=== PATIENT | female | born 1985 ===

== ENCOUNTER 2022-12-06 13:54 | Outpatient (AMB) | payer OTHER, SELFPAY ==
[2022-12-06 13:55] VITALS: BP 112/68; PULSE 61; O2SAT 100; BMI 29.1
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
== END 2022-12-06 14:29 | disposition home or self-care (01) ==
PROVIDERS: Visit Provider Nurse Practitioner Family
DX: Z00.00 Encounter for general adult medical examination without abnormal findings (principal); G43.909 Migraine, unspecified, not intractable, without status migrainosus; F41.1 Generalized anxiety disorder; F33.1 Major depressive disorder, recurrent, moderate
CPT/HCPCS: 99395

== ENCOUNTER 2023-11-05 17:02 | Outpatient (AMB) | payer OTHER, SELFPAY ==
[2023-11-05 17:24] VITALS: BP 114/70; PULSE 70; O2SAT 99; BMI 28.9
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
== END 2023-11-05 17:47 | disposition home or self-care (01) ==
PROVIDERS: PCP Internal Medicine; Visit Provider Internal Medicine
DX: G43.909 Migraine, unspecified, not intractable, without status migrainosus (principal); F33.1 Major depressive disorder, recurrent, moderate; F41.1 Generalized anxiety disorder
CPT/HCPCS: 99213; G2211

== ENCOUNTER 2023-12-11 10:46 | Emergency (ER) | payer OTHER, SELFPAY ==
--- NOTE | ~2023-12-11 | XR_ITS ---
EXAMINATION: XR CHEST CLINICAL INFORMATION: Central chest pain and dyspnea COMPARISON: 12/25/2008 TECHNIQUE: 2 views of the chest were obtained. FINDINGS: No significant abnormality is noted involving the heart, lungs, mediastinum, bony thorax or soft tissues. XR/XR chest 2V IMPRESSION: Unremarkable examination.
--- NOTE | 2023-12-11 10:50 | ECG_ITS ---
Test Reason : cp Blood Pressure : / mmHG Vent. Rate : 075 BPM Atrial Rate : 075 BPM P-R Int : 118 ms QRS Dur : 092 ms QT Int : 370 ms P-R-T Axes : 030 022 018 degrees QTc Int : 413 ms Normal sinus rhythm Normal ECG No previous ECGs available Referred By: Generic ED Physician Electronically Signed By:EVE JUNIOR MD
[2023-12-11 11:11] VITALS: BP 120/94; PULSE 74; RESP 18; TEMP 37; O2SAT 100; BMI 28.6
--- NOTE | 2023-12-11 11:13 | ED.CHESTPAIN ---
HPI - Chest Pain General Chief Complaint: Chest Pain Stated Complaint: Chest pain 1 week Time Seen by Provider: 12/11/23 13:08 Source: patient and RN notes reviewed Mode of arrival: ambulatory Limitations: no limitations History of Present Illness ED Provider: Bibi Iniguez PA-C HPI narrative: This is a 37-year-old female, with a history of anxiety, and migraines, who presents emergency department with complaints of constant chest pain x6 days. Patient states that she initially felt these symptoms while she was typing at the computer on . She states that her symptoms have waxed and waned in severity. She states that initially her pain was midsternal, now is diffusely throughout her chest. She states that the pain worsens when she takes deep breaths. She denies any sharp pain. She denies any recent fevers, chills, sore throat, congestion, cough, palpitations, shortness of breath, abdominal pain, nausea, vomiting or diarrhea. Denies history of similar symptoms. Patient denies control use. Denies any recent travel, surgery, or hospitalizations. Denies history of blood clots or cancer history. No other complaints or concerns at this time. MD complaint: chest pain Related Data Previous Rx's ?Medication ?Instructions ?Recorded cetirizine 10 mg tablet (All Day 10 mg PO DAILY PRN allergy 11/05/23 Allergy (cetirizine)) symptoms 90 days #90 tabs sertraline 25 mg tablet 25 mg PO DAILY 90 days #90 tabs 11/05/23 sumatriptan succinate 25 mg tablet 25 mg PO Q2-4H PRN migraine 11/05/23 headache 30 days #9 tabs Allergies Allergy/AdvReac Type Severity Reaction Status Date / Time bee pollen [Bee Stings] Allergy Severe ANAPHYLAXIS Verified 12/11/23 11:15 latex [Latex] Allergy Severe ANAPHYLAXIS Verified 12/11/23 11:15 mushroom Allergy Severe ANAPHYLAXIS Verified 12/11/23 11:15 apple AdvReac Intermediate itching Verified 12/11/23 11:15 Bee Stings Allergy Unknown Swelling Uncoded 11/05/23 17:36 Latex Allergy Unknown Unknown Uncoded 11/05/23 17:36 mushrooms Allergy Unknown Anaphylaxis Uncoded 11/05/23 17:36 cherries AdvReac Mild itching Uncoded 11/05/23 17:36 Review of Systems Review of Systems: Yes all other systems are reviewed and are negative Constitutional: Constitutional: Reports as per HPI [facility] Past Medical History Surgical History History of tubal ligation History of Family History Family History Mother Mental health disorder Substance use disorder Father No problems noted. Family/Other Substance use disorder Cancer Social History Social History Housing: Apartment Alcohol intake: current Alcohol intake frequency: holidays/special occasions only Alcohol type: wine Patient Tobacco Use Status: Former Tobacco user Tobacco use type: Cigarette Smoked in Last 30 Days: No e-Cigarette/Vaping Use: Never Used Second Hand Smoke Exposure: No Use of substances other than those prescribed or required for medical reasons: No Advance Directives: No Advance Directives Information Provided: Yes service: No Current occupational status: unemployed Cognitive needs: No Hearing needs: No Vision needs: Yes Physical Exam Vital Signs: Vital Signs: Last Vital Signs Temp 98.3 F 12/11/23 16:25 Pulse 72 12/11/23 16:25 Resp 16 12/11/23 16:25 BP 113/69 12/11/23 16:25 Pulse Ox 100 12/11/23 16:25 O2 Del Method Room Air 12/11/23 16:25 BMI result Body Mass Index 28.6 Const: General: cooperative, comfortable and no acute distress Orientation/consciousness: patient oriented x3 Limitations: no limitations HEENT: Head: Yes normal to inspection, Yes normocephalic and Yes atraumatic Ears: hearing grossly normal bilaterally General nose exam: Normal external nose present Face and sinus: Yes normal facial exam Mouth: Normal oral and palatal mucosa present, oropharynx normal and moist mucous membranes Throat: Yes posterior oropharynx normal Eyes: General: appearance normal, both eyes and all related structures Eyelids: Yes eyelids normal Conjunctivae: conjunctivae normal Sclerae: sclerae normal Pupils: Equal, round and reactive pupils present EOM: EOMs intact bilaterally Neck: Neck: Yes normal visual inspection, Yes full ROM and Yes no lymphadenopathy Lymphatic: no lymphadenopathy noted Chest: Chest palpation & inspection: normal inspection of the chest Resp: Effort & Inspection: normal respiratory effort and able to speak in complete sentences Auscultation: clear to auscultation bilaterally, no crackles, no rales, no rhonchi and no wheezes Cardio: Rate: regular rate Rhythm: regular rhythm Heart sounds: S1 normal heart sound present and S2 normal heart sound present GI: Inspection: Yes normal to inspection Skin: General skin exam: no rashes or lesions noted Trauma: no lacerations or abrasions Wounds: no wounds Neuro: General: patient oriented x3 and moves all extremities Cranial nerves: Yes Equal, round and reactive pupils present Extrem: Other: No lower extremity edema, no calf tenderness General: Yes normal to inspection Right upper extremity: normal to inspection Left upper extremity: normal to inspection Right lower extremity: normal to inspection Left lower extremity: normal to inspection Course Course Course Narrative: This is a Rapid Medical Examination (RME) performed by Katalina Barraza PA-C in triage. Full HPI, ROS, assessment and treatment plan per primary provider in the Main ED. 37 yo female hx of RADHA, MDD here for eval of intermittent chest pain x 6 days. pain is sharp in character. orginated substernally, now moves from left to right chest and radiates into neck. admits to assoc dyspnea. denies known sick contacts. denies recent travel/ long car rides. taking tylenol at home w/ minimal relief. denies fever, chills, cough, hemoptysis, calf pain. + rrr. lungs cta. Plan: ekg, cxr, labs Medical Decision Making Medical Decision Making [facility] Narrative: This is a 37-year-old female, with a history of anxiety, and migraines, who presents emergency department with complaints of constant chest pain x6 days. On arrival, vital signs within normal limits. She is speaking full sentences under no distress. No recent travel, surgeries or hospitalizations. She is not on control. Given pleuritic chest pain, pulmonary embolisms however likely given no risk factors. Labs, EKG, chest x-ray was obtained, no abnormalities seen on workup. Workup was overall reassuring. Given strict return precautions. Patient understands and agrees with plan. Patient stable for discharge. Differential Diagnosis Differential Diagnoses: The differential diagnosis associated with the presentation includes ACS, costochondritis, pneumonia, PE-unlikely Admission/Observation Consideration of admission/observation: Escalation of care including admission/observation considered Lab Data MDM Lab Attestation statement: I reviewed the patient's lab results. No leukocytosis, stable H&H, chemistry within normal limits 12/11/23 11:36 12/11/23 11:36 Labs: Lab Results 12/11/23 12/11/23 12/11/23 Range/Units 11:36 11:37 15:18 WBC 6.3 (4.8-10.8) X10*3/uL RBC 4.42 (4.20-5.50) X10*6/uL Hgb 13.3 (12.0-16.0) g/dl Hct 39.3 (37.0-47.0) % MCV 88.9 (80.0-98.0) fL MCH 30.1 (27.0-33.0) pg MCHC 33.8 (31.0-35.0) g/dl RDW 12.4 (11.0-16.0) % Plt Count 405 H (160-400) X10*3/uL MPV 9.6 (9.4-12.3) fL Immature Gran % (Auto) 0.3 (0.0-0.4) % Neut % (Auto) 66.5 (45-73) % Lymph % (Auto) 23.6 (20-40) % [place] % (Auto) 8.8 (2-11) % Eos % (Auto) 0.6 (0-4) % Baso % (Auto) 0.2 (0-2) % Lymph # (Auto) 1.5 (1.2-4.9) X10*3/uL [place] # (Auto) 0.6 (0.1-1.2) X10*3/uL Eos # (Auto) 0.0 (0.0-0.4) X10*3/uL Baso # (Auto) 0.0 (0.0-0.2) X10*3/uL Abs Immat Gran (auto) 0.02 (0.00-0.03) X10*3/uL Absolute Neuts (auto) 4.2 (2.0-8.3) x10*3/uL Absolute Nucleated RBC 0.000 (0.0-0.012) X10*3/uL Nucleated RBC % (auto) 0.0 (0.0-0.2) /100WBC PT 12.3 (11.1-13.3) SEC INR 1.0 (0.9-1.1) D-Dimer High Sensitivty < 150 NG/ML Sodium 140 (135-145) mmol/L Potassium 3.8 (3.3-5.1) mmol/L Chloride 102 (96-108) mmol/L Carbon Dioxide 30 H (22-29) mmol/L Anion Gap 12 (12-20) BUN 12 (9-16) mg/dL Creatinine 0.78 (0.5-1.4) mg/dL Estim Creat Clear Calc 79.6 Estimated GFR > 60 Random Glucose 93 (60-115) mg/dL Calcium 9.7 (8.4-10.2) mg/dL Magnesium 2.0 (1.6-2.6) mg/dL Total Bilirubin 1.3 H (0.0-1.0) mg/dL AST 17 (5-31) U/L ALT 15 (0-31) U/L Alkaline Phosphatase 72 (39-117) U/L Troponin I High Sens < 2.7 (<3.5-17.0) ng/L B-Natriuretic Peptide 14 (<100) pg/mL Total Protein 7.7 (6.5-8.0) g/dL Albumin 4.5 (3.5-5.0) g/dL Lipase 14 (8-78) U/L Beta HCG, Quant < 2 mIU/mL Influenza Type A (PCR) NEGATIVE (Negative) Influenza Type B (PCR) NEGATIVE (Negative) RSV RNA Qual (PCR) NEGATIVE (Negative) SARS-CoV-2 RNA (RT-PCR) NEGATIVE (Negative) Independent Interpretation I performed an independent interpretation of an: EKG Interpretation: Normal sinus rhythm at a ventricular rate of 75 beats per minute, HI interval 118, QT QTC 370/413, no ST elevation or depression Radiology Impression Discussion of test interpretation with radiology: I have reviewed the radiologist's reading. Radiologist Impression: EXAMINATION: XR CHEST CLINICAL INFORMATION: Central chest pain and dyspnea COMPARISON: 12/25/2008 TECHNIQUE: 2 views of the chest were obtained. FINDINGS: No significant abnormality is noted involving the heart, lungs, mediastinum, bony thorax or soft tissues. XR/XR chest 2V IMPRESSION: Unremarkable examination. Dictated By: Jakob Pittman MD External Record Review External record reviewed: Inpatient record, Office record, Outpatient record, Prior outpatient labs, Prior outpatient radiology, Primary care record and Outside ED record Discharge Plan Discharge Clinical Impression: Chest pain Patient Disposition: Home, Self-Care Instructions: Chest Pain (ED) Additional Instructions: You were seen in the emergency department due to chest pain. Your workup today was reassuring. You tested negative for COVID, flu, RSV. Please drink plenty of fluids get plenty of rest. Follow-up with your primary care physician regarding this visit. If any new or worsening symptoms occur including but not limited to worsening chest pain, shortness of breath, please return for re-evaluation. You may take ibuprofen and/or Tylenol as needed for pain. Prescriptions: No Action sertraline 25 mg tablet 25 mg PO DAILY 90 Days Qty: 90 0RF cetirizine [All Day Allergy (cetirizine)] 10 mg tablet 10 mg PO DAILY PRN (Reason: allergy symptoms) 90 Days Qty: 90 0RF sumatriptan succinate 25 mg tablet 25 mg PO Q2-4H PRN (Reason: migraine headache) 30 Days Qty: 9 1RF Rx Instructions: do not exceed 8 doses per 24 hrs Interventions: ED Discharge Assessment Last Done: 12/11/23 16:25 Discharge Date/Time: 12/11/23 16:15 Print Language: Urdu
[2023-12-11 11:45] LABS: MANUAL DIFF FLAG NO
[2023-12-11 11:49] LABS: Basophils Percent Auto 0.2 % (0-2); Eosinophils Percent Auto 0.6 % (0-4); Hematocrit 39.3 % (37.0-47.0); Hemoglobin 13.3 g/dl (12.0-16.0); Imm Gran Abs Auto 0.02 X10*3/uL (0.00-0.03); Imm Gran Pct Auto 0.3 % (0.0-0.4); Lymphocytes Absolute Auto 1.5 X10*3/uL (1.2-4.9); Lymphocytes Percent Auto 23.6 % (20-40); Mean Corpuscular HGB Conc 33.8 g/dl (31.0-35.0); Mean Corpuscular Hemoglobin 30.1 pg (27.0-33.0); Mean Corpuscular Volume 88.9 fL (80.0-98.0); Mean Platelet Volume 9.6 fL (9.4-12.3); Monocytes Absolute Auto 0.6 X10*3/uL (0.1-1.2); Monocytes Percent Auto 8.8 % (2-11); Neutrophils Absolute Auto 4.2 x10*3/uL (2.0-8.3); Neutrophils Percent Auto 66.5 % (45-73); Platelet Count 405 X10*3/uL (160-400); Red Blood Count 4.42 X10*6/uL (4.20-5.50); Red Cell Distribution Width 12.4 % (11.0-16.0); White Blood Count 6.3 X10*3/uL (4.8-10.8)
[2023-12-11 11:57] LABS: Prothrombin Time 12.3 SEC (11.1-13.3)
[2023-12-11 12:11] LABS: B Type Natriuretic Peptide 14 pg/mL (<100)
[2023-12-11 12:12] LABS: Alanine Aminotransferase 15 U/L (0-31); Albumin Level 4.5 g/dL (3.5-5.0); Alkaline Phosphatase 72 U/L (39-117); Anion Gap 12 (12-20); Aspartate Amino Transferase 17 U/L (5-31); Bilirubin Total 1.3 mg/dL (0.0-1.0); Blood Urea Nitrogen 12 mg/dL (9-16); Calcium 9.7 mg/dL (8.4-10.2); Carbon Dioxide 30 mmol/L (22-29); Chloride 102 mmol/L (96-108); Creatinine Clr Calc Pharmacy 79.6; Estimated Glomerular Filt Rate > 60; Glucose Random 93 mg/dL (60-115); Lipase 14 U/L (8-78); Potassium 3.8 mmol/L (3.3-5.1); Sodium 140 mmol/L (135-145); Total Protein 7.7 g/dL (6.5-8.0)
[2023-12-11 12:17] LABS: HCG Quantitative < 2 mIU/mL; Troponin-I High Sensitivity < 2.7 ng/L (<3.5-17.0)
[2023-12-11 14:00] VITALS: BP 113/69; PULSE 72; TEMP 36.8; O2SAT 100
[2023-12-11 14:10] LABS: D Dimer High Sensitivity < 150 NG/ML
[2023-12-11 15:59] LABS: Influenza A PCR NEGATIVE (Negative); Influenza B PCR NEGATIVE (Negative); Resp Syncy Virus RNA Qual PCR NEGATIVE (Negative); SARS COV2 PCR INHOUSE NEGATIVE (Negative)
[2023-12-11 16:25] VITALS: BP 113/69; PULSE 72; RESP 16; TEMP 36.8; O2SAT 100
== END 2023-12-11 16:15 | disposition home or self-care (01) ==
PROVIDERS: Physician Assistant Medical; Emergency Provider Emergency Medicine; PCP Internal Medicine
DX: R07.9 Chest pain, unspecified (principal); Z79.899 Other long term (current) drug therapy; Z03.818 Encounter for observation for suspected exposure to other biological agents ruled out
CPT/HCPCS: 0241U; 36415; 71046; 80053; 83690; 83735; 83880; 84484; 84702; 85025; 85379; 85610; 93005; 99283; 99284

== ENCOUNTER → 2023-12-11 10:50 | Outpatient (BNV) | payer OTHER, SELFPAY | PROVIDERS: Emergency Provider Emergency Medicine; PCP Internal Medicine; Visit Provider Internal Medicine Cardiovascular Disease | DX: R07.9 Chest pain, unspecified (principal) | CPT/HCPCS: 93010 ==

== ENCOUNTER 2024-04-21 15:03 | Outpatient (AMB) | payer OTHER, SELFPAY ==
--- NOTE | 2024-04-21 15:19 | MHC.PC.OV ---
Vital Signs 04/21/24 15:22 Height 4 ft 11 in Weight 147 lb BMI 29.7 BP 120/72 Blood Pressure Location Lt brachial Position Sitting Intake Visit Reasons: PHYSICAL Intake Note: Patient here for a physical exam Manager Medical Device Required: No Accompanied by: Self / Same As Patient Allergies bee pollen [Bee Stings] Allergy (Severe, Verified 04/21/24 15:43) ANAPHYLAXIS latex [Latex] Allergy (Severe, Verified 04/21/24 15:43) ANAPHYLAXIS mushroom Allergy (Severe, Verified 04/21/24 15:43) ANAPHYLAXIS apple Adverse Reaction (Intermediate, Verified 04/21/24 15:43) itching Bee Stings Allergy (Unknown, Uncoded 04/21/24 15:43) Swelling Latex Allergy (Unknown, Uncoded 04/21/24 15:43) Unknown mushrooms Allergy (Unknown, Uncoded 04/21/24 15:43) Anaphylaxis cherries Adverse Reaction (Mild, Uncoded 04/21/24 15:43) itching Medication List - Last Reconciled 04/21/24 by Amanda Nunes MD No Known Home Meds Tobacco use date assessed: 11/05/23 Dental Screening Dental Screen Date: 11/05/23 HPI HPI Comments History of Present Illness Details The patient is a 38-year-old female presenting for her physical exam. She has visual disturbances and complaints of musculoskeletal pain. She notes experiencing left hip and leg pain, which she associates with a fall in the bathroom. These symptoms seem to suggest piriformis syndrome. This pain intensifies at night and does not significantly impact walking during the day. Previously, an emergency room visit suggested possible sciatica, though imaging was not definitive. She uses [id number]-ubqmqku analgesics, such as Tylenol and ibuprofen, intermittently. The patient also describes visual phenomena, characterized by a sensation of twisting and blurriness in her eyes, which has persisted for two weeks. This was thought to be related to prior occurrences of seizures, though recent imaging was inconclusive. Her musculoskeletal discomfort followed a fall in the bathroom. She experienced similar sensations years ago when diagnosed with seizures. - Tetanus vaccination due - Referral for Pap smear - Referral to physical therapy for musculoskeletal pain - Suggestion to see an fruit buyer for visual disturbances [facility] History History of tubal ligation History of Family History Mother Mental health disorder Substance use disorder Father No problems noted. Family/Other Substance use disorder Cancer Social History Housing: Apartment Alcohol intake: current Alcohol intake frequency: holidays/special occasions only Alcohol type: wine Patient Tobacco Use Status: Former Tobacco user Tobacco use type: Cigarette e-Cigarette/Vaping Use: Never Used Second Hand Smoke Exposure: No service: No Current occupational status: unemployed Cognitive needs: No Hearing needs: No Vision needs: Yes Questionnaire PHQ-9 Over the last 2 weeks, how often have you been bothered by any of the following problems? 1. Little interest or pleasure in doing things: not at all 2. Feeling down, depressed, or hopeless: not at all 3. Trouble falling or staying asleep, or sleeping too much: several days 4. Feeling tired or having little energy: several days 5. Poor appetite or overeating: several days 6. Feeling bad about yourself - or that you are a failure or have let yourself or your family down: not at all 7. Trouble concentrating on things, such as reading the newspaper or watching television: not at all 8. Moving or speaking so slowly that other people could have noticed. Or the opposite - being so fidgety or restless that you have been moving around a lot more than usual: not at all 9. Thoughts that you would be better off or of hurting yourself in some way: not at all Total score: 3 Depression Screening Interpretation: Positive Depression Screening Follow-up: Existing condition and Follow-up Visit Requested Depression Screening Done: Yes 68272 - PHQ-9 Billing: Yes Source: Developed by Drs. Manpreet Mcclellan, Radha Du, aSlvador Wells and colleagues, with an educational theo from [employer]. Thrive Questionnaire Date Thrive assessed: 04/21/24 I am a: Patient What is your living situation today?: I choose not to answer this question Within the past 12 months, did the food you bought not last and you didn't have the money to get more?: I choose not to answer this question Within the past 12 months, did you worry whether your food would run out before you got money to buy more?: I choose not to answer this question Do you have trouble paying for medicines?: No Do you have trouble getting transportation to medical appointments?: No Do you have trouble paying your heating and electricity bill?: No Do you have trouble taking care of your child, family member or friend?: No Do you have trouble with day-to-day activities such as bathing, preparing meals, shopping, managing finances, etc.?: No Are you currently unemployed and looking for a job?: No Are you interested in more education?: I choose not to answer this question Please select the resources that you would like help with: None Currently or been in a relationship where the following occur: I choose not to answer THRIVE Score: 0 AUDIT C Alcohol Use Questionnaire (AUDIT-C) 1. How often do you have a drink containing alcohol?: Monthly or less 2. How many drinks containing alcohol do you have on a typical day when you are drinking?: 1 or 2 3. How often do you have six or more drinks on one occasion?: Less than monthly Total Score: 2 Score Reviewed/Action Taken: No RADHA-7 AMB Questionnaire RADHA-7 Date RADHA - 7 assessed: 04/21/24 Feeling nervous, anxious, or on edge: 1 = Several days Not being able to stop or control worryin = Not at all Worrying too much about different things: 0 = Not at all Trouble relaxin = Not at all Being so restless that it is hard to sit still: 0 = Not at all Becoming easily annoyed or irritable: 0 = Not at all Feeling afraid as if something awful might happen: 0 = Not at all Total RADHA-7 score (0-4 normal; 5-9 mild; 10-14 moderate; 15-21 severe): 1 Source: Developed by Drs. Mapnreet Mcclellan, Radha Du, Salvador Wells and colleagues, with an educational theo from [employer]. RADHA-7 Assessment Billing RADHA-7 Assessment Tool: RADHA-7 Assessment 99436 Review of Systems Const All systems reviewed & are unremarkable except as noted in HPI and below Reports headache(s) ENT Reports headache(s) Card Denies chest pain at rest, Denies chest pain with activity, Denies edema, Denies irregular heart rhythm, Denies claudication, Denies dyspnea, Denies dyspnea on exertion, Denies orthopnea, Denies paroxysmal nocturnal dyspnea and Denies slow heart rate Resp Denies cough, Denies dyspnea and Denies dyspnea on exertion GI Denies abdominal pain, Denies change in bowel habits, Denies excessive flatus, Denies nausea and Denies vomiting Denies urinary incontinence, Denies urinary hesitancy and Denies urinary urgency Musc Reports back pain and Reports arthralgias Neuro Reports headache(s) Physical exam (Primary Care) Vital Signs: Last Vital Signs BP 120/72 04/21/24 15:22 BMI result Body Mass Index 29.7 Tobacco/Smoking Status: Tobacco use Status Tobacco use date assessed 11/05/23 04/21/24 15:33 Patient Tobacco Use Status Former Tobacco user 04/21/24 15:33 Tobacco use type Cigarette 04/21/24 15:33 e-Cigarette/Vaping Use Never Used 04/21/24 15:33 PHQ-9: PHQ-9 Score PHQ-9: Total score 3 04/21/24 16:02 Depression Screening Interpretation: Positive Depression Screening Follow-up: Existing condition and Follow-up Visit Requested Thrive Assessment: Date of Thrive Assessment Date Thrive assessed 04/21/24 04/21/24 15:33 Currently or been in a relationship where the following occur: I choose not to answer [facility] Head: Yes normal to inspection, Yes normocephalic and Yes atraumatic Ears: external ears normal Eyes General: appearance normal, both eyes and all related structures Eyelids: Yes eyelids normal Conjunctivae: conjunctivae normal Neck Neck: Yes normal visual inspection and Yes supple Resp Effort & Inspection: normal respiratory effort Auscultation: clear to auscultation bilaterally Cardio Jugular venous distension: no JVD Rate: regular rate Rhythm: regular rhythm Heart sounds: S1 normal heart sound present and S2 normal heart sound present GI Inspection: Yes normal to inspection Palpation (GI): Soft to palpation and nontender Auscultation: normal bowel sounds Skin General skin exam: no rashes or lesions noted Neuro General: no focal motor deficits Extrem General: Yes full ROM Psych Appearance: grossly normal Office Procedures Flu Questionnaire Does the patient have a severe egg allergy?: No Does the patient have severe life threatening allergies?: No Does the patient have a fever or illness today?: No Has the patient ever had Guillain-[place] Syndrome?: No Has the patient ever had any past reaction to a flu shot?: No Immunizations Fluarix Triv 5947-9749 (PF) 45 mcg (15 mcg x 3)/0.5 mL IM syringe Performing Provider: Amanda Nunes MD Performing Location: [facility] [place] [facility] [place] [facility] Administered by: ESTEBAN Schwab on 04/21/24 16:01 Dose Route Admin Location Dispensed Lot Number Expiration Date [place] [employer]isher 0.5 mL IM Right Deltoid 0.5 mL [id number] 11/03/24 [id number] [employer] VIS Given Date VIS Provided VIS Publication Date 04/21/24 Single Vaccine 20 Eligibility Eligibility Date Funding Source Not VFC Eligible 04/21/24 Private Boostrix Tdap 2.5 Lf unit-8 mcg-5 Lf/0.5 mL intramuscular syringe Performing Provider: Amanda Nunes MD Performing Location: [facility] [place] [facility] Administered by: ESTEBAN Schwab on 04/21/24 16:03 Dose Route Admin Location Dispensed Lot Number Expiration Date [place] [employer] Finisher 0.5 mL IM Left Deltoid 0.5 mL [id number] 02/01/25 [id number] [employer] VIS Given Date VIS Provided VIS Publication Date 04/21/24 Single Vaccine 20 Eligibility Eligibility Date Funding Source Not VFC Eligible 04/21/24 Private Coding Level of Care Code Est Pt Level 3 (39380) Est Pt Prev Care 18-39y(60055) Diagnoses Adult general medical exam Z00.00 Persistent headaches R51.9 Lumbar pain M54.50 Left hip pain M25.552 Blurry vision H53.8 Additional Codes RADHA-7 Assessment Billing - RADHA-7 Assessment Tool: RADHA-7 Assessment 28840 ([id number]) PHQ-9 - 95547 - PHQ-9 Billing: Yes ([id number]) Time Spent (min) 35 Assessment & Plan Assessment & Plan (1) Adult general medical exam: Code(s): Z00.00 - Encounter for general adult medical examination without abnormal findings Category: Medical (2) Persistent headaches: Code(s): R51.9 - Headache, unspecified Category: Medical (3) Lumbar pain: Code(s): M54.50 - Low back pain, unspecified Category: Medical (4) Left hip pain: Code(s): M25.552 - Pain in left hip Category: Medical (5) Blurry vision: Code(s): H53.8 - Other visual disturbances Category: Medical Plan - Administer tetanus vaccination. - Refer to physical therapy for management of suspected piriformis syndrome and left hip pain. - Arrange Pap smear and recommend referral to an fruit buyer due to ongoing visual disturbances. - Order MRI to evaluate possible neurological causes for the visual disturbances considering past seizure history. Patient was informed and verbally consented to the use of an ambient scribe for clinic note documentation during this visit. During the visit, I discussed the importance of staying current with vaccinations and addressed the patient's concern about tetanus prophylaxis. We reviewed her musculoskeletal symptoms and agreed that physical therapy could benefit her greatly. I emphasized the need for identified diagnostic studies, such as an MRI, given her history of seizures and present visual issues. I provided reassurance regarding the imaging findings and advised an ophthalmology referral to evaluate the persistent visual symptoms. Orders: Orders Lipid Panel Today Z00.00 - Encounter for general adult medical examination without abnormal findings Comprehensive [place]. Panel Fast Today Z00.00 - Encounter for general adult medical examination without abnormal findings Complete Blood Count Auto Diff Today G43.909 - Migraine, unspecified, not intractable, without status migrainosus Influenza [id number] Immunization Today Z23 - Encounter for immunization PT Evaluation and Treatment Today M25.552 - Pain in left hip, M54.50 - Low back pain, unspecified MR head/brain wo con Today R51.9 - Headache, unspecified Vitamin B12 and Folate Today E53.8 - Deficiency of other specified B group vitamins Vitamin D 25-OH Total Today E55.9 - Vitamin D deficiency, unspecified Thyroid Stimulating Hormone Today R07.9 - Chest pain, unspecified TDaP Immunization Today Z23 - Encounter for immunization Referrals [employer]PER[employer] Referral Z12.4 - Encounter for screening for malignant neoplasm of cervix Patient Instructions: - Get tetanus shot today. - Follow up with physical therapy for left hip pain. - Obtain the referral for Pap smear and schedule an appointment. - Schedule an appointment with an fruit buyer. - Have blood work and imaging as discussed.
[2024-04-21 15:22] VITALS: BP 120/72; BMI 29.7
== END 2024-04-21 16:01 | disposition home or self-care (01) ==
PROVIDERS: PCP Internal Medicine; Visit Provider Internal Medicine
DX: Z00.00 Encounter for general adult medical examination without abnormal findings (principal); R51.9 Headache, unspecified; M54.50 Low back pain, unspecified; M25.552 Pain in left hip; H53.8 Other visual disturbances; Z23 Encounter for immunization

== ENCOUNTER → 2024-04-21 15:03 | Outpatient (BNVA) | payer OTHER, SELFPAY | PROVIDERS: PCP Internal Medicine; Visit Provider Internal Medicine | DX: Z00.00 Encounter for general adult medical examination without abnormal findings (principal); M25.552 Pain in left hip; M79.605 Pain in left leg; R51.9 Headache, unspecified; M54.50 Low back pain, unspecified; H53.8 Other visual disturbances; Z23 Encounter for immunization; Z91.81 History of falling | CPT/HCPCS: 90471; 90472; 90656; 90715; 96127; 99212 ==

== ENCOUNTER 2024-05-14 10:36 | Outpatient (REF) | payer OTHER, SELFPAY ==
--- NOTE | ~2024-05-14 | MR_ITS ---
EXAMINATION: MR BRAIN WITHOUT IV CONTRAST HISTORY: R51.9 - Headache, unspecified TECHNIQUE: Sagittal T1, and axial T1, FLAIR, T2, gradient echo, and diffusion weighted MR images of the brain were obtained. COMPARISON: Correlation is made with an unenhanced head CT dated 09/21/2017. FINDINGS: The brain parenchyma is unremarkable, demonstrating normal weber/white differentiation. No foci of abnormal signal intensity are identified. The ventricular system is normal in size and configuration. There is no mass effect or midline shift. No intra or extra-axial fluid collections are identified. There are no foci of restricted diffusion. Normal vascular flow voids are noted in the basilar and carotid arteries. The visualized paranasal sinuses are clear. MR/MR head/brain wo con IMPRESSION: Unremarkable MRI of the brain without contrast. Electronically signed by: Manpreet Hall MD 05/16/2024 07:28 AM [facility]
== END 2024-05-14 10:37 | disposition home or self-care (01) ==
LOC: HO.MRI 10:36
PROVIDERS: PCP Internal Medicine; Visit Provider Internal Medicine
DX: R51.9 Headache, unspecified (principal)
CPT/HCPCS: 70551

== ENCOUNTER → 2024-05-14 10:52 | Outpatient (BNV) | payer OTHER, SELFPAY | PROVIDERS: PCP Internal Medicine; Visit Provider Radiology Diagnostic Radiology | DX: R51.9 Headache, unspecified (principal) | CPT/HCPCS: 70551 ==

== ENCOUNTER 2024-05-23 11:16 | Outpatient (AMB) | payer OTHER, SELFPAY ==
--- NOTE | 2024-05-23 11:20 | A.OFFVIS_ITS ---
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 Accompanied by: Child Allergies bee pollen [Bee Stings] Allergy (Severe, Verified 05/23/24 11:25) ANAPHYLAXIS latex [Latex] Allergy (Severe, Verified 05/23/24 11:25) ANAPHYLAXIS mushroom Allergy (Severe, Verified 05/23/24 11:25) ANAPHYLAXIS apple Adverse Reaction (Intermediate, Verified 05/23/24 11:25) itching Bee Stings Allergy (Unknown, Uncoded 04/21/24 15:43) Swelling Latex Allergy (Unknown, Uncoded 04/21/24 15:43) Unknown mushrooms Allergy (Unknown, Uncoded 04/21/24 15:43) Anaphylaxis cherries Adverse Reaction (Mild, Uncoded 04/21/24 15:43) itching HPI Comments Details: Kat is a very pleasant 38-year-old female who presents to the office today for evaluation management of her left lower back pain She has been suffering with this pain for approximately 2 years. Denies inciting injury, fall, trauma. She has 4 children pain was worse during and during labor. Endorses pain over left PSIS with radiation posteriorly down the thigh and referred pain down the leg to the foot. Pain is worse with standing, sitting, lying on the affected side, going up and downstairs. Exacerbated by work, patient reports her job is physically active with a lot of walking and going up and downstairs which exacerbates her pain. She states that pain is worse in the night and has interrupt her sleep. When she wakes up it as throbbing with burning and numbness Pain today is rated as a 9/10, constant Recently evaluated by her primary care doctor ordered PT, muscle relaxers. She has yet to be called by physical therapy and is awaiting prior Auth for the muscle relaxers. Has been taking Tylenol and Motrin without improvement. Denies history of chiropractor, acupuncture, massage or previous attempts at injection Denies red flag symptoms including loss of bowel, bladder or saddle anesthesia Denies recent imaging In terms of muscle damage condition is described as pinching, cramping, stabbing, tingling Pain is negatively impacting patient's sleep, ability to care for self, enjoyment of life, work, ability to care for her family, ability to perform activities of daily living Denies current use of anticoagulants Denies implantable devices, pacemaker or defibrillator Denies current use of nicotine, tobacco, alcohol or illicit substances PFSH Surgical History History of tubal ligation History of Family History Mother Mental health disorder Substance use disorder Father No problems noted. Family/Other Substance use disorder Cancer Social History Housing: Apartment Alcohol intake: current Alcohol intake frequency: holidays/special occasions only Alcohol type: wine Patient Tobacco Use Status: Former Tobacco user Tobacco use type: Cigarette e-Cigarette/Vaping Use: Never Used Second Hand Smoke Exposure: No service: No Current occupational status: unemployed Cognitive needs: No Hearing needs: No Vision needs: Yes Review of Systems Const All systems reviewed & are unremarkable except as noted in HPI and below Physical Exam Vital Signs: Last Vital Signs Pulse 71 05/23/24 11:27 BP 126/85 05/23/24 11:27 Pulse Ox 98 05/23/24 11:27 Oxygen Delivery Method Room Air 05/23/24 11:27 BMI result Body Mass Index 29.5 General: awake, alert, oriented. Answers questions appropriately. Fully engaged in examination. Skin: warm, dry, intact HEENT: Normocephalic. Hearing intact. Cardiac: External chest normal in appearance. Respiratory: No cough, audible wheezing or stridor. Abdomen: without gross distension. MS: No obvious swelling or deformities. Able to stand on bilateral tiptoes and bilateral heels.? Able to transition from sit to stand unassisted. Ambulates with bilaterally normal heel strike and toe off Left SIJ: Tenderness over left PSIS. [place] positive, thigh thrust positive, SI compression positive SLR negative bilaterally Neurological: Oriented to person, place, time and situation. Thought process intact. No gait abnormalities appreciated. Psychiatric: Appropriate mood and affect. Good judgment and insight. Assessment & Plan Assessment & Plan (1) Sacroiliac joint dysfunction of left side: Code(s): M53.3 - Sacrococcygeal disorders, not elsewhere classified Category: Medical Plan Kat is a very pleasant 38-year-old female who presented to the office today for evaluation management of her left lower back pain History, physical exam and provocative testing consistent with left sacroiliac joint dysfunction Order placed for PT eval and treat Methocarbamol 500 mg p.o. 3 times daily as needed. Patient advised on cautions for use. Amitriptyline 10 mg p.o. q.h.s.. Patient was fitted for SI belt. Advised on instructions for use. If no improvement with conservative therapy will plan for fluoroscopy guided left diagnostic sacroiliac joint injection with local anesthetic All questions and concerns were answered, patient agrees with plan. Follow up after PT, sooner if needed. Orders: Orders XR hip LT w PEL 1V Today M53.3 - Sacrococcygeal disorders, not elsewhere classified XR lumbar spine 4V min Today M54.9 - Dorsalgia, unspecified PT Evaluation and Treatment Today M53.3 - Sacrococcygeal disorders, not elsewhere classified Medications: New amitriptyline 10 mg PO BEDTIME 30 tabs 1RF methocarbamol No driving while taking this medication. 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
[2024-05-23 11:27] VITALS: BP 126/85; PULSE 71; O2SAT 98; BMI 29.5
== END 2024-05-23 11:53 | disposition home or self-care (01) ==
PROVIDERS: PCP Internal Medicine; Referring Provider Internal Medicine; Visit Provider Registered Nurse Emergency
DX: M53.3 Sacrococcygeal disorders, not elsewhere classified (principal)
CPT/HCPCS: 99204; G2211

== ENCOUNTER → 2024-05-23 11:16 | Outpatient (BNVA) | payer OTHER, SELFPAY | PROVIDERS: PCP Internal Medicine; Referring Provider Internal Medicine; Visit Provider Registered Nurse Emergency | DX: M53.3 Sacrococcygeal disorders, not elsewhere classified (principal) | CPT/HCPCS: 99202 ==

== ENCOUNTER 2024-06-10 10:20 | Emergency (ER) | payer OTHER, SELFPAY ==
--- NOTE | ~2024-06-10 | XR_ITS ---
EXAMINATION: XR SACRUM AND COCCYX CLINICAL INFORMATION: fall down stairs, tailbone pain COMPARISON: None available. TECHNIQUE: 2 views of the sacrum and 2 views of the coccyx were obtained. FINDINGS: There are no fractures. No bone, joint or soft tissue abnormality is demonstrated. There is grade 1 anterolisthesis L5 over S1 with L5-S1 degenerative disc changes. There is bilateral L5 pars defect suspected XR/XR sacrum coccyx min 2V IMPRESSION: Unremarkable sacrum and coccyx. Grade 1 anterolisthesis L5 over S1 with degenerative L5-S1 disc changes Electronically signed by: Mau Pop MD 06/10/2024 01:38 PM EST
--- NOTE | ~2024-06-10 | XR_ITS ---
EXAMINATION: XR SHOULDER, LEFT CLINICAL INFORMATION: fall down stairs, left shoulder pain COMPARISON: None available. TECHNIQUE: AP external rotation, Grashey, scapular Y, and axillary views of the left shoulder. FINDINGS: The bones and soft tissues are normal. No fracture. Glenohumeral and acromioclavicular alignment is anatomic with normal joint space. No abnormal soft tissue calcifications. XR/XR shoulder LT min 2V IMPRESSION: Normal left shoulder. Electronically signed by: Mau Ppo MD 06/10/2024 01:39 PM EST
--- NOTE | ~2024-06-10 | XR_ITS ---
EXAMINATION: XR HAND/WRIST, LEFT CLINICAL INFORMATION: fall down stairs, L wrist pain COMPARISON: None available. TECHNIQUE: Four views of the left hand and wrist. FINDINGS: The bones and soft tissues are normal. No fracture. Alignment is anatomic. Joint spaces are maintained. No erosions or soft tissue calcifications. XR/XR hand wrist LT IMPRESSION: Normal radiographs of the hand and wrist. Electronically signed by: Mau Pop MD 06/10/2024 01:37 PM [facility]
--- NOTE | ~2024-06-10 | XR_ITS ---
EXAMINATION: XR ELBOW, LEFT CLINICAL INFORMATION: fall down stairs, L elbow pain COMPARISON: None available. TECHNIQUE: AP, lateral, and oblique views of the left elbow. FINDINGS: The bones and soft tissues are normal. No fracture or joint effusion. Alignment is anatomic. Joint spaces are maintained. XR/XR elbow LT min 3V IMPRESSION: Normal left elbow. Electronically signed by: Mau Pop MD 06/10/2024 01:39 PM EST
[2024-06-10 12:37] VITALS: BP 129/80; PULSE 61; RESP 16; TEMP 37; O2SAT 100; BMI 29.7
--- NOTE | 2024-06-10 12:41 | ED_ITS ---
HPI - Extremity Injury (Upper) General Chief Complaint: Fall Stated Complaint: Fall down stairs - L elbow injury Time Seen by Provider: 06/10/24 14:20 Source: patient Mode of arrival: ambulatory Limitations: no limitations History of Present Illness ED Provider: SUNITA BARRAZA PA-C HPI narrative: 38 year old female with pmhx significant for anxiety, depression, migraines presents to the ED for evaluation of tailbone pain, left shoulder/left elbow/left wrist pain s/p mechanical slip and fall down approximately 15 wooden stairs at work at 0945. Reports slipping and falling onto her left arm/ tailbone, slid down the rest of the way on her bottom. Denies head strike or LOC. Not on AC. Denies headache, dizziness, numbness/tingling/weakness of the LUE. Related Data Home Medications ?Medication ?Instructions ?Recorded ?Confirmed acetaminophen 325 mg tablet 650 mg PO Q6H PRN 05/23/24 (Tylenol) ibuprofen 200 mg capsule (Motrin 400 mg PO Q6H 05/23/24 IB) Previous Rx's ?Medication ?Instructions ?Recorded amitriptyline 10 mg tablet 10 mg PO BEDTIME #30 tabs 05/23/24 methocarbamol 500 mg tablet 500 mg PO TID PRN muscle spasm #90 05/23/24 tabs acetaminophen 325 mg tablet 650 mg (2 x 325 mg) PO Q4-6H PRN 06/10/24 (Tylenol) pain (scale score 1-3) #30 tabs ibuprofen 600 mg tablet 600 mg PO Q8H PRN pain (scale 06/10/24 score 1-3) #30 tabs Allergies Allergy/AdvReac Type Severity Reaction Status Date / Time bee pollen [Bee Stings] Allergy Severe ANAPHYLAXIS Verified 06/10/24 12:39 latex [Latex] Allergy Severe ANAPHYLAXIS Verified 06/10/24 12:39 mushroom Allergy Severe ANAPHYLAXIS Verified 06/10/24 12:39 apple AdvReac Intermediate itching Verified 06/10/24 12:39 Bee Stings Allergy Unknown Swelling Uncoded 04/21/24 15:43 Latex Allergy Unknown Unknown Uncoded 04/21/24 15:43 mushrooms Allergy Unknown Anaphylaxis Uncoded 04/21/24 15:43 cherries AdvReac Mild itching Uncoded 04/21/24 15:43 Review of Systems Review of Systems: Constitutional: No fever, chills, fatigue, night sweats, weight changes ENT/Mouth: No ear pain, hearing loss, nasal congestion, sinus pain, rhinorrhea, sore throat Eyes: No eye pain, swelling, redness, vision changes, discharge Cardio: No chest pain, palpitations, CHAMPION, orthopnea, peripheral edema Pulm: No SOB, cough, sputum, wheezing, dyspnea, hemoptysis GI: No nausea, vomiting, hematemesis, abdominal pain, diarrhea, constipation, hematochezia, melena : No irregular bleeding, dysuria, frequency, urgency, hesitancy, hematuria, flank pain, urinary flow changes, urinary incontinence or retention MSK: No back pain, neck pain, joint pain, myalgias, +tailbone, l wrist, l elbow, l shoulder pain Skin: No lesions, rashes Neuro: No weakness, numbness, paresthesias, LOC, dizziness, headache Psych: No anxiety/panic, depression, SI/HI, AH/VH All other systems reviewed and are negative. [facility] Past Medical History Attestation statement: The following information was validated with the patient. Source: old records reviewed and nursing notes reviewed Surgical History History of tubal ligation History of Family History Family History Mother Mental health disorder Substance use disorder Father No problems noted. Family/Other Substance use disorder Cancer Social History Social History Housing: Apartment Alcohol intake: current Alcohol intake frequency: holidays/special occasions only Alcohol type: wine Patient Tobacco Use Status: Former Tobacco user Tobacco use type: Cigarette e-Cigarette/Vaping Use: Never Used Second Hand Smoke Exposure: No Advance Directives: No Advance Directives Information Provided: Yes service: No Current occupational status: unemployed Cognitive needs: No Hearing needs: No Vision needs: Yes Physical Exam Vital Signs: Vital Signs: Last Vital Signs Temp 98.6 F 06/10/24 12:37 Pulse 61 06/10/24 12:37 Resp 16 06/10/24 12:37 BP 129/80 06/10/24 12:37 Pulse Ox 100 06/10/24 12:37 O2 Del Method Room Air 06/10/24 12:37 BMI result Body Mass Index 29.7 vital signs stable General: Well appearing, in no acute distress. Skin: Warm, dry, intact. No rashes or lesions. Head: Normocephalic, atraumatic. EENT: Hearing is intact b/l. Conjunctiva clear. PERRLA. EOM intact. Moist mucous membranes.? Neck: No midline cervical spine tenderness or step-off deformity Cardiac: Chest wall symmetric. RRR Lungs: Normal respiratory effort without accessory muscle use. CTA bilaterally. Abdomen: Soft, non-tender, non-distended. No rebound tenderness or guarding. Positive BS x4. Back: No midline spinous tenderness or step-off deformity. No paraspinal muscle tenderness to palpation. Ext: +no noted deformity to left wrist, elbow or shoulder. No overlying skin changes. Slightly tender to palpation over entire wrist and posterior elbow. Full ROM intact to left wrist and left elbow. Full ROM intact to right shoulder with slight pain on abduction and extension. Sensation intact. 2+ radial/ulnar pulse intact. Neuro: AOx3. Normal speech. Strength 5/5 intact throughout. No saddle anesthesia. Sensation intact to light touch. NV intact distally. Ambulating with steady gait. Psych: Appropriate mood and affect. Responds appropriately to questions. Course Course Course Narrative: This is a Rapid Medical Examination (RME) performed by Katalina Barraza PA-C in [facility] age. Full HPI, ROS, assessment and treatment plan per primary provider in the Main ED. 38 yo female here for eval of tailbone, left shoulder, left elbow, and left wrist pain s/p slide down approx 15 wooden stairs while at work around 0945 today. slid down the stairs on her left side. no head strike or loc. no thinners. +ttp over left wrist and left elbow. no obvious deformity. pain w/ abduction of left shoulder. nontender. cms intact. Plan: imaging Reevaluation(s) Reevaluation #1: 1441 - x-rays of left shoulder, elbow, hand/wrist and coccyx are all normal. No acute fractures noted. Patient placed in sling for comfort. Advised her to follow up with her primary care provider. Advised Tylenol, Motrin. Patient has remained stable throughout ED visit today. Discussed worrisome signs and symptoms and when to return to the ED. All questions answered at this time. Patient is agreeable with disposition and stable for discharge. Medical Decision Making Medical Decision Making MDM Narrative: 38 year old female with pmhx significant for anxiety, depression, migraines presents to the ED for evaluation of tailbone pain, left shoulder/left elbow/left wrist pain s/p mechanical slip and fall down approximately 15 wooden stairs at work at 0945. Vital signs stable. She is nontoxic appearing in no acute distress. There is no midline lumbar spinous tenderness or step-off deformity. ambulating w/ steady gait. no noted deformity to left wrist, elbow or shoulder. No overlying skin changes. Slightly tender to palpation over entire wrist and posterior elbow. Full ROM intact to left wrist and left elbow. Full ROM intact to right shoulder with slight pain on abduction and extension. Sensation intact. 2+ radial/ulnar pulse intact. Differential diagnosis includes contusion, fracture, dislocation, msk sprain/strain. Unlikely neurovascular compromise, threat to limb, compartment syndrome. Unlikely cord compression, cauda equina, Guillain-[place], epidural abscess. Plan for imaging and re-evaluation. Differential Diagnosis Differential Diagnoses: The differential diagnosis associated with the presentation includes As above Admission/Observation Not indicated Independent Interpretation I performed an independent interpretation of an: Plain X-Ray Interpretation: X-ray left shoulder without fracture X-ray left elbow without fracture X-ray left hand/wrist without fracture X-ray coccyx without fracture Radiology Impression Discussion of test interpretation with radiology: I have reviewed the radiologist's reading. Radiologist Impression: EXAMINATION: XR SACRUM AND COCCYX CLINICAL INFORMATION: fall down stairs, tailbone pain COMPARISON: None available. TECHNIQUE: 2 views of the sacrum and 2 views of the coccyx were obtained. FINDINGS: There are no fractures. No bone, joint or soft tissue abnormality is demonstrated. There is grade 1 anterolisthesis L5 over S1 with L5-S1 degenerative disc changes. There is bilateral L5 pars defect suspected XR/XR sacrum coccyx min 2V IMPRESSION: Unremarkable sacrum and coccyx. Grade 1 anterolisthesis L5 over S1 with degenerative L5-S1 disc changes Electronically signed by: Mau Pop MD 06/10/2024 01:38 PM EST Procedure(s): XR shoulder LT min 2V Accession Number(s): [id number] cc: Sunita Barraza; Amanda Acosta MD~ EXAMINATION: XR SHOULDER, LEFT CLINICAL INFORMATION: fall down stairs, left shoulder pain COMPARISON: None available. TECHNIQUE: AP external rotation, Grashey, scapular Y, and axillary views of the left shoulder. FINDINGS: The bones and soft tissues are normal. No fracture. Glenohumeral and acromioclavicular alignment is anatomic with normal joint space. No abnormal soft tissue calcifications. XR/XR shoulder LT min 2V IMPRESSION: Normal left shoulder. Electronically signed by: Mau Pop MD 06/10/2024 01:39 PM EST RP Procedure(s): XR elbow LT min 3V Accession Number(s): [id number] cc: Sunita Barraza; Amanda Acosta MD~ EXAMINATION: XR ELBOW, LEFT CLINICAL INFORMATION: fall down stairs, L elbow pain COMPARISON: None available. TECHNIQUE: AP, lateral, and oblique views of the left elbow. FINDINGS: The bones and soft tissues are normal. No fracture or joint effusion. Alignment is anatomic. Joint spaces are maintained. XR/XR elbow LT min 3V IMPRESSION: Normal left elbow. Electronically signed by: Mau Pop MD 06/10/2024 01:39 PM EST RP Procedure(s): XR hand wrist LT Accession Number(s): [id number] cc: Sunita Barraza; Amanda Acosta MD~ EXAMINATION: XR HAND/WRIST, LEFT CLINICAL INFORMATION: fall down stairs, L wrist pain COMPARISON: None available. TECHNIQUE: Four views of the left hand and wrist. FINDINGS: The bones and soft tissues are normal. No fracture. Alignment is anatomic. Joint spaces are maintained. No erosions or soft tissue calcifications. XR/XR hand wrist LT IMPRESSION: Normal radiographs of the hand and wrist. Electronically signed by: Mau Pop MD 06/10/2024 01:37 PM EST RP External Record Review External record reviewed: Inpatient record Prescription Management I considered prescription management with: Pain Medication (Tylenol, Motrin) Social Determinants Patient?s care significantly limited by Social Determinants of Health including: Other Social Determinant of Health Critical Care Time Critical Care Time Critical Care Time: No Discharge Plan Discharge Clinical Impression: Fall from slipping, Contusion of left arm Patient Disposition: Home, Self-Care Instructions: Contusion in Adults (ED) Additional Instructions: You were evaluated in the ED today after a slip and fall. The xrays of your left shoulder/ elbow/ wrist/ hand and tailbone are all normal. You were placed in a sling for comfort. As discussed, remove the arm multiple t imes a day and move it around to prevent frozen shoulder. I recommend you take 600mg ibuprofen every 6 hours or Tylenol 650mg every 6 hours as needed for pain. If needed, you can alternate these medications so that you take one medication every 3 hours. For example, at noon take ibuprofen, then at 3pm take Tylenol, then at 6pm take ibuprofen. Ice the area of 20 mintues at a time, then change to heat. Please follow up with PCP. Return with any new or worsening symptoms. In the case of an emergency call 911. Prescriptions: New acetaminophen [Tylenol] 325 mg tablet 650 mg PO Q4-6H PRN (Reason: pain (scale score 1-3)) Qty: 30 0RF ibuprofen 600 mg tablet 600 mg PO Q8H PRN (Reason: pain (scale score 1-3)) Qty: 30 0RF No Action ibuprofen [Motrin IB] 200 mg capsule 400 mg PO Q6H acetaminophen [Tylenol] 325 mg tablet 650 mg PO Q6H PRN methocarbamol 500 mg tablet 500 mg PO TID PRN (Reason: muscle spasm) Qty: 90 0RF Rx Instructions: No driving while taking this medication. 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
== END 2024-06-10 14:51 | disposition home or self-care (01) ==
LOC: HO.ED 14:38
PROVIDERS: Emergency Provider Emergency Medicine; PCP Internal Medicine
DX: S40.022A Contusion of left upper arm, initial encounter (principal); M79.602 Pain in left arm; M53.3 Sacrococcygeal disorders, not elsewhere classified; M79.642 Pain in left hand; W10.9XXA Fall (on) (from) unspecified stairs and steps, initial encounter; Y93.9 Activity, unspecified; Y92.9 Unspecified place or not applicable; Y99.8 Other external cause status; Z79.899 Other long term (current) drug therapy; Z87.891 Personal history of nicotine dependence
CPT/HCPCS: 72220; 73030; 73080; 73110; 73130; 99281; 99283; 99284

== ENCOUNTER → 2024-06-10 12:40 | Outpatient (BNV) | payer OTHER, SELFPAY | PROVIDERS: PCP Internal Medicine; Visit Provider Radiology Diagnostic Radiology | DX: M25.512 Pain in left shoulder (principal); M25.522 Pain in left elbow; M25.532 Pain in left wrist; M53.3 Sacrococcygeal disorders, not elsewhere classified; W10.8XXA Fall (on) (from) other stairs and steps, initial encounter | CPT/HCPCS: 72220; 73030; 73080; 73130 ==

== ENCOUNTER 2024-07-18 10:00 | Outpatient (RCR) | payer OTHER, SELFPAY ==
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
--- NOTE | 2024-08-15 07:42 | MHC.PT.DC ---
[facility] [place] Office [place] Office [place] Office [address] Kris Forman [address] [phone] F: [phone] F: [phone] F: [phone] F: [phone] Physical Therapy Discharge Report Diagnosis: This is a 38 yo female presenting to skilled PT with a script for L hip pain. Date of Surgery: Date of Evaluation: 06/04/24 Date of Discharge: 08/15/24 Treatments to Date: 6 Cancellations to Date: 0 No Shows to Date: 0 Discharge Status: Recommend MD Follow-up Discharge Summary: 07/18: Patient with one more scheduled appointment however I am cancelling this due to lack of improvements with patient. We have trialed ther-ex for strengthening, ROM, functional ther-ex, manual soft tissue and MET as well as mobilizations, tens for pain relief and KT without any improvements. Patient was educated to return back to referring MD. Chart was closed in 30 days. Electronically signed by: Yolanda Law PT Please sign and return to therapist. Thank you for your referral.
== END 2024-08-15 07:42 | disposition home or self-care (01) ==
LOC: HO.PTCHIC 10:00
PROVIDERS: PCP Internal Medicine; Visit Provider Internal Medicine
DX: M25.552 Pain in left hip (principal); M54.50 Low back pain, unspecified
CPT/HCPCS: 97014; 97110; 97140; 97162; 97164

== ENCOUNTER 2024-07-25 10:12 | Outpatient (AMB) | payer OTHER, SELFPAY ==
--- NOTE | 2024-07-25 10:31 | MHC.OFFVIS ---
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 Required: No Accompanied by: Self / Same As Patient Allergies bee pollen [Bee Stings] Allergy (Severe, Verified 07/25/24 10:34) ANAPHYLAXIS latex [Latex] Allergy (Severe, Verified 07/25/24 10:34) ANAPHYLAXIS mushroom Allergy (Severe, Verified 07/25/24 10:34) ANAPHYLAXIS apple Adverse Reaction (Intermediate, Verified 07/25/24 10:34) itching Bee Stings Allergy (Unknown, Uncoded 04/21/24 15:43) Swelling Latex Allergy (Unknown, Uncoded 04/21/24 15:43) Unknown mushrooms Allergy (Unknown, Uncoded 04/21/24 15:43) Anaphylaxis cherries Adverse Reaction (Mild, Uncoded 04/21/24 15:43) itching HPI Comments Details: The patient is a 38-year-old female presenting with chronic pain primarily involving the left buttock region. The pain radiates down the left leg with increasing intensity, affecting the thigh. The onset of pain correlates with past occurrences, with persistent symptoms despite continuous physical therapy, HEP and routine use of a supportive belt. Medications like ibuprofen and naproxen, along with amitriptyline and muscle relaxants, have not substantially benefitted her condition, prompting her to seek additional treatment. Symptomatically, the presence of poorly localized pressure and tight sensation from the left gluteal area to the leg has been noted. The patient undertakes a home exercise regimen regularly but without notable improvement. Nonrelief by standard analgesics necessitates exploring further interventions such as an injection targeted to the implicated area under imaging guidance. - Onset and Timing: Chronic, progressively worsening - Quality and Character: Persistent discomfort with pressure-like tightness - Primary Location: Left gluteal region - Areas of Radiation: Left thigh, leg - Aggravating Factors: Physical exertion, pressure - Relieving Factors: None noted from therapies tried - Interference with Functions: Disruptions to sleep, difficulties with comfortable positioning - Affect: Pain disrupting quality of sleep, causing discomfort in daily resting positions - Analgesia: NSAIDs, Amitriptyline, muscle relaxers; no significant symptom relief - Adverse Effects: Gastrointestinal discomfort, ceasing systemic medication - Activities of Daily Living: Pain affects ambulation and comfortable positioning - Aberrant Drug-Related Behaviors: No aberrant behaviors reported Intake note: Kat is a very pleasant 38-year-old female who presents to the office today for evaluation management of her left lower back pain She has been suffering with this pain for approximately 2 years. Denies inciting injury, fall, trauma. She has 4 children pain was worse during and during labor. Endorses pain over left PSIS with radiation posteriorly down the thigh and referred pain down the leg to the foot. Pain is worse with standing, sitting, lying on the affected side, going up and downstairs. Exacerbated by work, patient reports her job is physically active with a lot of walking and going up and downstairs which exacerbates her pain. She states that pain is worse in the night and has interrupt her sleep. When she wakes up it as throbbing with burning and numbness Pain today is rated as a 9/10, constant Recently evaluated by her primary care doctor ordered PT, muscle relaxers. She has yet to be called by physical therapy and is awaiting prior Auth for the muscle relaxers. Has been taking Tylenol and Motrin without improvement. Denies history of chiropractor, acupuncture, massage or previous attempts at injection Denies red flag symptoms including loss of bowel, bladder or saddle anesthesia Denies recent imaging In terms of muscle damage condition is described as pinching, cramping, stabbing, tingling Pain is negatively impacting patient's sleep, ability to care for self, enjoyment of life, work, ability to care for her family, ability to perform activities of daily living Denies current use of anticoagulants Denies implantable devices, pacemaker or defibrillator Denies current use of nicotine, tobacco, alcohol or illicit substances [facility] Surgical History History of tubal ligation History of Family History Mother Mental health disorder Substance use disorder Father No problems noted. Family/Other Substance use disorder Cancer Social History Housing: Apartment Alcohol intake: current Alcohol intake frequency: holidays/special occasions only Alcohol type: wine Patient Tobacco Use Status: Former Tobacco user Tobacco use type: Cigarette e-Cigarette/Vaping Use: Never Used Second Hand Smoke Exposure: No service: No Current occupational status: unemployed Cognitive needs: No Hearing needs: No Vision needs: Yes Review of Systems Const Details: - Musculoskeletal: Reports chronic pain in the left gluteal and leg region - Neurological: Reports sensation of tightness and pressure in the left leg Physical Exam Vital Signs: Last Vital Signs Pulse 58 07/25/24 10:34 BP 126/77 07/25/24 10:34 Pulse Ox 98 07/25/24 10:34 Oxygen Delivery Method Room Air 07/25/24 10:34 BMI result Body Mass Index 30.0 General: awake, alert, oriented. Answers questions appropriately. Fully engaged in examination. Skin: warm, dry, intact HEENT: Normocephalic. Hearing intact. Cardiac: External chest normal in appearance. Respiratory: No cough, audible wheezing or stridor. Abdomen: without gross distension. MS: No obvious swelling or deformities. Able to transition from sit to stand unassisted. Ambulates with bilaterally normal heel strike and toe off Left SIJ: Tenderness over left PSIS. [place] positive, thigh thrust positive, SI compression positive SLR negative bilaterally Neurological: Oriented to person, place, time and situation. Thought process intact. No gait abnormalities appreciated. Psychiatric: Appropriate mood and affect. Good judgment and insight. Results Reviewed Results Reviewed: 06/2024 XR/XR sacrum coccyx min 2V FINDINGS: There are no fractures. No bone, joint or soft tissue abnormality is demonstrated. There is grade 1 anterolisthesis L5 over S1 with L5-S1 degenerative disc changes. There is bilateral L5 pars defect suspected IMPRESSION: Unremarkable sacrum and coccyx. Grade 1 anterolisthesis L5 over S1 with degenerative L5-S1 disc changes Assessment & Plan Assessment & Plan (1) Sacroiliac joint dysfunction of left side: Code(s): M53.3 - Sacrococcygeal disorders, not elsewhere classified Category: Medical Plan The patient will undergo a diagnostic injection procedure under imaging to assess and localize pain sources accurately. Insurance approval will be sought to facilitate this two-step process to establish the efficacy of an anesthetic and contrast agent in identifying pain origins. The intervention aims for diagnostic clarity before progressing to a corticosteroid-based injectable solution for therapeutic purposes. The ongoing pain management regimen involving amitriptyline and muscle relaxants will continue, with prescription renewals addressed. A follow-up plan involves patient self-monitoring with a pain diary post-procedure to aid in evaluating the intervention's efficacy and determining further action. I explained to the patient the diagnostic and therapeutic potential of an injection strategy, including the process of obtaining insurance approval. The use of a localized numbing injection as a first step will provide diagnostic clarity to assess whether subsequent steroid injection could offer longer-term relief. This preliminary injection is anticipated to provide short-term pain relief, during which the patient should document pain relief duration and percentage quantitatively in a pain diary. This information will support our application for insurance-covered therapeutic interventions. I ensured the patient understood that no systemic sedation is involved during the procedure, allowing for self-transport barring anxiety-induced sedative use such as Ativan, which would necessitate transportation assistance. Will schedule for fluoroscopy guided left diagnostic sacroiliac joint injection with local anesthetic. Patient has exhausted conservative therapy including PT, home exercise program, SI belt, NSAIDs, prescription medications all without improvement of her symptoms - Keep a detailed pain diary following the diagnostic injection, noting relief levels and duration. - Continue current medications, and refills will be provided. - Await a call for scheduling the diagnostic injection procedure. - Note any improvement in symptoms or new side effects to discuss at the follow-up visit. - Discuss with scheduling staff a preferred date, aligning with work/personal commitments. - Attend the procedure, prepared to remain still and flat during the injection process. - No need for a pick up driver unless pre-procedure anxieties require additional medication. - Report any significant changes or side effects promptly. Patient was informed and verbally consented to the use of an ambient scribe for clinic note documentation during this visit. Coding Level of Care Code Est Pt Level 3 (46175) Complex EM visit Add On G2211 Diagnoses Sacroiliac joint dysfunction of left side M53.3
[2024-07-25 10:34] VITALS: BP 126/77; PULSE 58; O2SAT 98
== END 2024-07-25 11:12 | disposition home or self-care (01) ==
LOC: HO.PMC 10:13
PROVIDERS: PCP Internal Medicine; Visit Provider Registered Nurse Emergency
DX: M53.3 Sacrococcygeal disorders, not elsewhere classified (principal)
CPT/HCPCS: 99213; G2211

== ENCOUNTER → 2024-07-25 10:12 | Outpatient (BNVA) | payer OTHER, SELFPAY | PROVIDERS: PCP Internal Medicine; Visit Provider Registered Nurse Emergency | DX: M53.3 Sacrococcygeal disorders, not elsewhere classified (principal) | CPT/HCPCS: 99212 ==

== ENCOUNTER 2024-08-05 07:56 | Outpatient (REF) | payer OTHER, SELFPAY ==
[2024-08-11 15:21] LABS: HPV Genotype 16 Negative (Negative); HPV Genotype 18 Negative (Negative); HPV High Risk Negative (Negative)
== END 2024-08-05 07:57 | disposition home or self-care (01) ==
LOC: HO.LNP 07:56
PROVIDERS: PCP Internal Medicine; Visit Provider Obstetrics & Gynecology
DX: Z01.419 Encounter for gynecological examination (general) (routine) without abnormal findings (principal); Z11.51 Encounter for screening for human papillomavirus (HPV)
CPT/HCPCS: 87626; 88175; 99385; 99459

== ENCOUNTER 2024-08-05 07:56 | Outpatient (AMB) | payer OTHER, SELFPAY ==
[2024-08-05 07:58] VITALS: BP 110/76; BMI 29.9
--- NOTE | 2024-08-05 07:58 | MHC.OFFVIS ---
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 Electric Required: No Information Interpreted: non-clinical & clinical Public Relations Analyst: Public Relations Analyst Present (Erika Houston ESTEBAN) Accompanied by: Self / Same As Patient Allergies bee pollen [Bee Stings] Allergy (Severe, Verified 08/05/24 07:59) ANAPHYLAXIS latex [Latex] Allergy (Severe, Verified 08/05/24 07:59) ANAPHYLAXIS mushroom Allergy (Severe, Verified 08/05/24 07:59) ANAPHYLAXIS apple Adverse Reaction (Intermediate, Verified 08/05/24 07:59) itching Bee Stings Allergy (Unknown, Uncoded 08/05/24 07:59) Swelling Latex Allergy (Unknown, Uncoded 08/05/24 07:59) Unknown mushrooms Allergy (Unknown, Uncoded 08/05/24 07:59) Anaphylaxis cherries Adverse Reaction (Mild, Uncoded 08/05/24 07:59) itching Is last menstrual period known: Yes Last menstrual period: 07/31/24 HPI Comments Details: Presenting for annual exam. No complaints. Last Pap/HPV was 5 years ago [facility] Surgical History History of tubal ligation History of Family History Mother Mental health disorder Substance use disorder Father No problems noted. Family/Other Substance use disorder Cancer Social History Housing: Apartment Alcohol intake: current Alcohol intake frequency: holidays/special occasions only Alcohol type: wine Patient Tobacco Use Status: Former Tobacco user Tobacco use type: Cigarette e-Cigarette/Vaping Use: Never Used Second Hand Smoke Exposure: No service: No Current occupational status: unemployed Cognitive needs: No Hearing needs: No Vision needs: Yes Female Reproductive History Menstrual Age of Menarche: 10 Duration of menses: 6-7 days Date of last menstrual period: 07/31/24 Total pregnancies: 8 Full term: 4 Number of Living Children: 4 Ab induced: 1 Ab spontaneous: 3 Review of Systems Const All systems reviewed & are unremarkable except as noted in HPI and below Card Reports as per HPI Resp Reports as per HPI GI Reports as per HPI and Reports no additional complaints Reports as per HPI Physical Exam Vital Signs: Last Vital Signs BP 110/76 08/05/24 07:58 BMI result Body Mass Index 29.9 Const General: cooperative, healthy appearing and comfortable Chest Chest palpation & inspection: normal inspection of the chest and normal palpation of entire chest wall Breast/axilla inspection: normal inspection of the breasts and normal inspection of the axillae Breast/axilla palpation: normal palpation of the breasts, normal palpation of the axillae and no axillary lymphadenopathy Resp Effort & Inspection: normal respiratory effort Auscultation: clear to auscultation bilaterally Percussion: percussion normal Cardio Palpation: normal PMI Rate: regular rate Rhythm: regular rhythm Heart sounds: no murmurs and no rubs Peripheral pulses: Peripheral pulses 2+ throughout GI Inspection: Yes normal to inspection Palpation (GI): Soft to palpation, nontender, no guarding, not rigid and No hepatosplenomegaly present Percussion: Yes normal to percussion Auscultation: normal bowel sounds Rectal Exam - Female: deferred General: Yes bladder normal to palpation External Female Exam: No lesion Speculum Exam - Vagina: normal appearance of the vagina, normal palpation, normal vaginal discharge and not erythematous Speculum Exam - Cervix: normal appearance of the cervix and normal palpation Bimanual exam- vagina & uterus: normal bimanual exam, normal palpation, uterine size normal, bladder normal to palpation, consistency normal and normal palpation Bimanual Exam- Adnexa, other: normal adnexae, no masses and no tenderness Assessment & Plan Assessment & Plan (1) Well woman exam: Code(s): Z01.419 - Encounter for gynecological examination (general) (routine) without abnormal findings Category: Medical Plan: Cotesting done. Mammogram ordered for 12/28. Counseled the patient about the recommended dietary allowance of 1000 mg of Calcium & 600 IU of vitamin D. The patient was instructed to perform monthly self-breast exams and to schedule an annual exam in a year; All questions answered and the patient verbalized understanding. Instructed the patient to schedule annual exam in a year Orders: Orders MM tomosynthesis screening BI 4 Months Z12.31 - Encounter for screening mammogram for malignant neoplasm of breast Coding Level of Care Code New Pt Prev Care 18-39yr([id number] Diagnoses Well woman exam Z01.419
== END 2024-08-05 08:18 | disposition home or self-care (01) ==
LOC: HO.HWS 07:56
PROVIDERS: PCP Internal Medicine; Visit Provider Obstetrics & Gynecology
DX: Z01.419 Encounter for gynecological examination (general) (routine) without abnormal findings (principal)
CPT/HCPCS: 99385; 99459

== ENCOUNTER 2024-08-21 14:42 | Emergency (ER) | payer OTHER, SELFPAY ==
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
--- NOTE | 2024-08-21 14:48 | ECG_ITS ---
Test Reason : chest pain Blood Pressure : */* mmHG Vent. Rate : 78 BPM Atrial Rate : 78 BPM P-R Int : 90 ms QRS Dur : 86 ms QT Int : 366 ms P-R-T Axes : 1 49 41 degrees QTcB Int : 417 ms Sinus rhythm with sinus arrhythmia with short KS Otherwise normal ECG When compared with ECG of 11-Dec-2023 10:50, No significant change was found Referred By: Shanda Mao Electronically Signed By: EVE JUNIOR MD
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
[2024-08-21 15:04] VITALS: BP 123/65; PULSE 87; RESP 18; TEMP 36.6; O2SAT 99; BMI 30.3
[2024-08-21 15:18] LABS: MANUAL DIFF FLAG NO
[2024-08-21 15:22] LABS: Basophils Percent Auto 0.1 % (0-2); Eosinophils Absolute Auto 0.1 X10*3/uL (0.0-0.4); Eosinophils Percent Auto 1.3 % (0-4); Hematocrit 37.2 % (37.0-47.0); Hemoglobin 12.6 g/dl (12.0-16.0); Imm Gran Abs Auto 0.03 X10*3/uL (0.00-0.03); Imm Gran Pct Auto 0.3 % (0.0-0.4); Lymphocytes Absolute Auto 1.9 X10*3/uL (1.2-4.9); Lymphocytes Percent Auto 19.5 % (20-40); Mean Corpuscular HGB Conc 33.9 g/dl (31.0-35.0); Mean Corpuscular Hemoglobin 29.8 pg (27.0-33.0); Mean Corpuscular Volume 87.9 fL (80.0-98.0); Mean Platelet Volume 9.9 fL (9.4-12.3); Monocytes Absolute Auto 0.7 X10*3/uL (0.1-1.2); Monocytes Percent Auto 7.8 % (2-11); Neutrophils Absolute Auto 6.7 x10*3/uL (2.0-8.3); Platelet Count 334 X10*3/uL (160-400); Red Blood Count 4.23 X10*6/uL (4.20-5.50); Red Cell Distribution Width 12.4 % (11.0-16.0); White Blood Count 9.5 X10*3/uL (4.8-10.8)
[2024-08-21 15:27] LABS: Carbon Monoxide POC 2.5 %
[2024-08-21 15:38] LABS: Alanine Aminotransferase 20 U/L (0-31); Albumin Level 4.1 g/dL (3.5-5.0); Anion Gap 12 (12-20); Aspartate Amino Transferase 20 U/L (5-31); Bilirubin Total 0.7 mg/dL (0.0-1.0); Blood Urea Nitrogen 10 mg/dL (9-16); Calcium 9.3 mg/dL (8.4-10.2); Carbon Dioxide 24 mmol/L (22-29); Chloride 108 mmol/L (96-108); Estimated Glomerular Filt Rate > 60; Glucose Random 102 mg/dL (60-115); Potassium 3.6 mmol/L (3.3-5.1); Sodium 140 mmol/L (135-145); Total Protein 7.1 g/dL (6.5-8.0)
[2024-08-21 15:48] VITALS: RESP 18
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
[2024-08-21 16:03] LABS: Alkaline Phosphatase 66 U/L (39-117)
[2024-08-21 16:05] LABS: Carbon Monoxide Refer to POC result
--- NOTE | 2024-08-21 16:37 | PC.NURSE ---
Pt placed on 10L NRB per PA request for 1 hour and repeat lab work after 1hr
[2024-08-21 17:13] LABS: Troponin-I High Sensitivity < 2.7 ng/L (<3.5-17.0)
[2024-08-21 17:53] LABS: Carbon Monoxide Refer to POC result; Venous Blood Gas Refer to POC result
[2024-08-21 17:54] LABS: Carbon Monoxide POC 2.4 %; VBG Base Excess 2.1 mmol/L; VBG HCO3 29 mmol/L (22-26); VBG pCO2 55 mmHg; VBG pH 7.33 (7.32-7.43); VBG pO2 41 mmHg
[2024-08-21 18:18] LABS: Troponin-I High Sensitivity < 2.7 ng/L (<3.5-17.0)
[2024-08-21 18:22] VITALS: BP 108/62; PULSE 63; RESP 20; O2SAT 100
[2024-08-21 18:32] LABS: HCG Quantitative < 2 mIU/mL
[2024-08-21 18:40] VITALS: BP 108/62; PULSE 63; RESP 20; TEMP -17.7; TEMP 0; O2SAT 100
== END 2024-08-21 18:46 | disposition home or self-care (01) ==
PROVIDERS: Physician Assistant; Registered Nurse Emergency; Emergency Provider Emergency Medicine; PCP Internal Medicine
DX: Z04.2 Encounter for examination and observation following work accident (principal); T59.811A Toxic effect of smoke, accidental (unintentional), initial encounter; R05.9 Cough, unspecified; Y92.59 Other trade areas as the place of occurrence of the external cause
CPT/HCPCS: 36415; 71046; 80053; 82375; 82803; 84484; 84702; 85025; 93005; 99283; 99285

== ENCOUNTER → 2024-08-21 14:48 | Outpatient (BNV) | payer OTHER, SELFPAY | PROVIDERS: Emergency Provider Emergency Medicine; PCP Internal Medicine; Visit Provider Internal Medicine Cardiovascular Disease | DX: R07.9 Chest pain, unspecified (principal) | CPT/HCPCS: 93010 ==

== ENCOUNTER → 2024-08-21 15:07 | Outpatient (BNV) | payer OTHER, SELFPAY | PROVIDERS: PCP Internal Medicine; Visit Provider Radiology Diagnostic Radiology | DX: R06.02 Shortness of breath (principal) | CPT/HCPCS: 71046 ==

== ENCOUNTER 2024-09-16 06:11 | Outpatient (REF) | payer OTHER, SELFPAY ==
--- NOTE | ~2024-09-16 | FL_ITS ---
EXAMINATION: FL GUIDANCE ONLY HISTORY: M53.3 - Sacrococcygeal disorders, not elsewhere classified COMPARISON: None available. TECHNIQUE: Fluoroscopy time: 0.1 minutes. Cumulative Dose: 1.0 mGy. DAP: 0.28225 mGym2 Images: 1. FINDINGS: A single fluoroscopic spot film demonstrates a needle and contrast material in the region of the left sacroiliac joint. FL/FL guidance in treatment room IMPRESSION: Fluoroscopy during procedure. Please see procedure report for additional information. Electronically signed by: Manpreet Hall MD 09/16/2024 12:58 PM EDT
== END 2024-09-16 06:12 | disposition home or self-care (01) ==
LOC: CF 06:11
PROVIDERS: Visit Provider Anesthesiology
DX: M53.3 Sacrococcygeal disorders, not elsewhere classified (principal)
CPT/HCPCS: 27096; J2003; J2795; Q9967

== ENCOUNTER 2024-09-16 07:13 | Outpatient (AMB) | payer OTHER, SELFPAY ==
[2024-09-16 07:19] VITALS: BP 102/72; PULSE 69; RESP 16; O2SAT 99
--- NOTE | 2024-09-16 07:19 | MHC.OFFVIS ---
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: No Allergies bee pollen [Bee Stings] Allergy (Severe, Verified 09/16/24 07:51) ANAPHYLAXIS latex [Latex] Allergy (Severe, Verified 09/16/24 07:51) ANAPHYLAXIS mushroom Allergy (Severe, Verified 09/16/24 07:51) ANAPHYLAXIS apple Adverse Reaction (Intermediate, Verified 09/16/24 07:51) itching Bee Stings Allergy (Unknown, Uncoded 09/16/24 07:20) Swelling Latex Allergy (Unknown, Uncoded 09/16/24 07:20) Unknown mushrooms Allergy (Unknown, Uncoded 09/16/24 07:20) Anaphylaxis cherries Adverse Reaction (Mild, Uncoded 09/16/24 07:20) itching Medication List - Last Reconciled 09/16/24 by Yesi Garcia LPN acetaminophen (Tylenol) 650 mg (2 x 325 mg) PO Q4-6H PRN acetaminophen (Tylenol) 650 mg PO Q6H PRN amitriptyline 10 mg PO BEDTIME ibuprofen 600 mg PO Q8H PRN ibuprofen (Motrin IB) 400 mg PO Q6H lorazepam (Ativan) 1 mg PO ONCE methocarbamol 500 mg PO TID PRN PFSH Surgical History History of tubal ligation History of Family History Mother Mental health disorder Substance use disorder Father No problems noted. Family/Other Substance use disorder Cancer Social History Housing: Apartment Alcohol intake: current Alcohol intake frequency: holidays/special occasions only Alcohol type: wine Patient Tobacco Use Status: Former Tobacco user Tobacco use type: Cigarette e-Cigarette/Vaping Use: Never Used Second Hand Smoke Exposure: No service: No Current occupational status: unemployed Cognitive needs: No Hearing needs: No Vision needs: Yes Female Reproductive History Menstrual Age of Menarche: 10 Physical Exam Vital Signs: Last Vital Signs Pulse 82 09/16/24 07:51 Resp 16 09/16/24 07:51 BP 118/62 09/16/24 07:51 Pulse Ox 98 09/16/24 07:51 Oxygen Delivery Method Room Air 09/16/24 07:51 BMI result Body Mass Index 29.9 Assessment & Plan Assessment & Plan (1) Sacroiliac joint dysfunction of left side: Code(s): M53.3 - Sacrococcygeal disorders, not elsewhere classified Category: Medical Plan Left diagnostic sacroiliac joint injection Informed consent was explained thoroughly to the patient.? All questions about benefits and risks for the procedure were answered. Patient came to the operating room she was positioned prone on the operating table with the pillow under her abdomen.? Time-out was performed delineating correct site and side of the procedure name and date of of the patient. Her lower back and buttocks was prepped with ChloraPrep prepped and draped with sterile towels.C-arm was brought over the operating field and sq picture of patient's pelvis was demonstrated on the screen.? For the left joint tilting C-arm contralateral to the site of the joint of the patient the most posterior portion of the joints were superimposed of the anterior portion of the joint . Skin was injected in the projection of the joint slightly medial to the location of the joint with 25 gauge 1/2 inch needle using local lidocaine 2% mixed with ropivacaine 0.5% 1 After that 22 gauge 5 inch needle was driven to each joint in tunnel vision fashion.? When needle entered the joint capsule injection of the contrast was performed demonstrating intra-articular and minimally periarticular spread of the contrast.? After that of ropivacaine 0.5% 5 mL was injected into each joint.? Upon completion of the injections the needles were removed and pressure were applied.? Sterile dressing was applied Orders: Orders FL guidance in treatment room Today M53.3 - Sacrococcygeal disorders, not elsewhere classified Medications: New lorazepam (Ativan) Take 30 minutes prior to arrival to procedure 1 mg PO ONCE 1 tab 0RF anxiety Coding Level of Care Code Procedure Only Diagnoses Sacroiliac joint dysfunction of left side M53.3
[2024-09-16 07:51] VITALS: BP 118/62; PULSE 82; RESP 16; O2SAT 98; BMI 29.9
== END 2024-09-16 07:50 | disposition home or self-care (01) ==
LOC: HO.PMCPRC 07:13
PROVIDERS: PCP Internal Medicine; Visit Provider Anesthesiology
DX: M53.3 Sacrococcygeal disorders, not elsewhere classified (principal)
CPT/HCPCS: 27096

== ENCOUNTER 2024-09-24 15:08 | Outpatient (AMB) | payer OTHER, SELFPAY ==
--- NOTE | 2024-09-24 15:11 | A.OFFVIS_ITS ---
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 Allergies bee pollen [Bee Stings] Allergy (Severe, Verified 09/24/24 15:13) ANAPHYLAXIS latex [Latex] Allergy (Severe, Verified 09/24/24 15:13) ANAPHYLAXIS mushroom Allergy (Severe, Verified 09/24/24 15:13) ANAPHYLAXIS apple Adverse Reaction (Intermediate, Verified 09/24/24 15:13) itching Bee Stings Allergy (Unknown, Uncoded 09/16/24 07:20) Swelling Latex Allergy (Unknown, Uncoded 09/16/24 07:20) Unknown mushrooms Allergy (Unknown, Uncoded 09/16/24 07:20) Anaphylaxis cherries Adverse Reaction (Mild, Uncoded 09/16/24 07:20) itching HPI Comments Details: The patient is a 38-year-old female presenting with a follow-up consultation for sacroiliac joint injection. She recently underwent a diagnostic left sacroiliac joint injection on 09/16/2024. This procedure provided approximately eight hours of complete pain relief, allowing her to engage in physical activities such as cleaning and moving without any discomfort, indicating the effectiveness of the procedure. However, the pain returned later the same day, demonstrating the temporary nature of the diagnostic injection. The patient expressed interest in a subsequent injection with steroid administration to achieve more enduring relief, which would improve her functional capacity for months. - Onset: Pain relief following injection started 09/16/2024 lasting approx 8 hours. - Duration: Pain relief lasted for eight hours. - Quality: Significant relief experienced. - Exacerbating factors: Movement post-relief period led to pain resumption. - Alleviating factors: Diagnostic sacroiliac joint injection provided temporary relief. - Interference: Pain affects daily activities such as cleaning and moving without symptoms during the relief period. - Affect: Pain relief significantly improved mood and functional capacity during relief period. - Analgesia: The recent injection provided temporary relief, indicating effective pain relief, with the goal of achieving longer-term relief with steroids. - Adverse Effects: No adverse effects from current management recorded. - Activities of Daily Living: Significant improvement in ability to perform activities during relief period; pain limits activities outside of relief period. - Aberrant Drug Related Behaviors: None reported or observed. [facility] Surgical History History of tubal ligation History of Family History Mother Mental health disorder Substance use disorder Father No problems noted. Family/Other Substance use disorder Cancer Social History Housing: Apartment Alcohol intake: current Alcohol intake frequency: holidays/special occasions only Alcohol type: wine Patient Tobacco Use Status: Former Tobacco user Tobacco use type: Cigarette e-Cigarette/Vaping Use: Never Used Second Hand Smoke Exposure: No service: No Current occupational status: unemployed Cognitive needs: No Hearing needs: No Vision needs: Yes Female Reproductive History Menstrual Age of Menarche: 10 Review of Systems Const Details: - Musculoskeletal: Reports pain relief for eight hours post-procedure on 09/16/2024. Physical Exam Vital Signs: Last Vital Signs Pulse 80 09/24/24 15:12 BP 118/69 09/24/24 15:12 BMI result Body Mass Index 30.7 General: awake, alert, oriented. Answers questions appropriately. Fully engaged in examination. Skin: warm, dry, intact HEENT: Normocephalic. Hearing intact. Cardiac: External chest normal in appearance. Respiratory: No cough, audible wheezing or stridor. Abdomen: without gross distension. MS: No obvious swelling or deformities. Able to transition from sit to stand unassisted. Neurological: Oriented to person, place, time and situation. Thought process intact. No gait abnormalities appreciated. Psychiatric: Appropriate mood and affect. Good judgment and insight. Results Reviewed Results Reviewed: 06/2024 XR/XR sacrum coccyx min 2V FINDINGS: There are no fractures. No bone, joint or soft tissue abnormality is demonstrated. There is grade 1 anterolisthesis L5 over S1 with L5-S1 degenerative disc changes. There is bilateral L5 pars defect suspected IMPRESSION: Unremarkable sacrum and coccyx. Grade 1 anterolisthesis L5 over S1 with degenerative L5-S1 disc changes Assessment & Plan Assessment & Plan (1) Sacroiliac joint dysfunction of left side: Code(s): M53.3 - Sacrococcygeal disorders, not elsewhere classified Category: Medical Plan Administer steroid-inclusive sacroiliac joint injection pending insurance approval to extend relief duration. Diagnostic injection results have shown short-term effectiveness indicative of successful previous intervention. A request is submitted for insurance consideration, and the patient is to be informed upon approval for scheduling the subsequent injection. I explained to the patient the results and implications of the recent diagnostic sacroiliac joint injection, which successfully provided temporary relief. We discussed the benefits and likely extended duration of relief achievable with a steroid-inclusive injection, potentially spanning several months. The patient understands and agrees to proceed with the next injection, given insurance approval. I provided a detailed explanation of the procedure, its advantages, and anticipated outcomes. Consent was adequately obtained to submit to insurance for approval, and once authorized, I will ensure prompt scheduling. The patient was informed that the procedure will be similar to the initial diagnostic injection, with the added benefit of steroids for prolonged efficacy. Patient was informed and verbally consented to the use of an ambient scribe for clinic note documentation during this visit. Patient Instructions: - Await contact for insurance approval. - Understand that the next procedure will replicate the previous one with additional steroids for lasting relief. - Expect a call to schedule the procedure after insurance authorization. - Continue to monitor and report any significant changes in pain. Coding Level of Care Code Est Pt Level 3 (70343) Complex EM visit Add On G2211 Diagnoses Sacroiliac joint dysfunction of left side M53.3
[2024-09-24 15:12] VITALS: BP 118/69; PULSE 80; BMI 30.7
== END 2024-09-24 15:20 | disposition home or self-care (01) ==
LOC: HO.PMC 15:09
PROVIDERS: PCP Internal Medicine; Visit Provider Registered Nurse Emergency
DX: M53.3 Sacrococcygeal disorders, not elsewhere classified (principal)
CPT/HCPCS: 99213; G2211

== ENCOUNTER → 2024-09-24 15:08 | Outpatient (BNVA) | payer OTHER, SELFPAY | PROVIDERS: PCP Internal Medicine; Visit Provider Registered Nurse Emergency | DX: M53.3 Sacrococcygeal disorders, not elsewhere classified (principal) | CPT/HCPCS: 99212 ==

== ENCOUNTER 2024-11-25 06:07 | Outpatient (REF) | payer OTHER, SELFPAY ==
--- NOTE | ~2024-11-25 | FL_ITS ---
EXAMINATION: FL GUIDANCE ONLY HISTORY: M53.3 - Sacrococcygeal disorders, not elsewhere classified COMPARISON: None available. TECHNIQUE: Fluoroscopy time: 0.1 minutes. Cumulative Dose: 1.46 mGy. DAP: 0.0155 mGym2 Images: 1. FINDINGS: A fluoroscopic spot film of the left hemipelvis demonstrates a needle and contrast material in the region of the sacroiliac joint. FL/FL guidance in treatment room IMPRESSION: Fluoroscopy during procedure. Please see procedure report for additional information. Electronically signed by: Manpreet Hall MD 11/25/2024 09:54 AM EDT
== END 2024-11-25 06:08 | disposition home or self-care (01) ==
LOC: CF 06:07
PROVIDERS: Visit Provider Anesthesiology
DX: M53.3 Sacrococcygeal disorders, not elsewhere classified (principal)
CPT/HCPCS: 27096; J2003; J2795; J3301; Q9967

== ENCOUNTER 2024-11-25 08:25 | Outpatient (AMB) | payer OTHER, SELFPAY ==
[2024-11-25 08:41] VITALS: BP 101/67; PULSE 72; RESP 18; O2SAT 100
--- NOTE | 2024-11-25 08:41 | MHC.OFFVIS ---
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 Allergies bee pollen (Bee Stings) Allergy (Severe, Verified 09/24/24 15:13) ANAPHYLAXIS latex (Latex) Allergy (Severe, Verified 09/24/24 15:13) ANAPHYLAXIS mushroom Allergy (Severe, Verified 09/24/24 15:13) ANAPHYLAXIS apple Adverse Reaction (Intermediate, Verified 09/24/24 15:13) itching Bee Stings Allergy (Unknown, Uncoded 09/16/24 07:20) Swelling Latex Allergy (Unknown, Uncoded 09/16/24 07:20) Unknown mushrooms Allergy (Unknown, Uncoded 09/16/24 07:20) Anaphylaxis cherries Adverse Reaction (Mild, Uncoded 09/16/24 07:20) itching PFSH Surgical History History of tubal ligation History of Family History Mother Mental health disorder Substance use disorder Father No problems noted. Family/Other Substance use disorder Cancer Social History Housing: Apartment Alcohol intake: current Alcohol intake frequency: holidays/special occasions only Alcohol type: wine Patient Tobacco Use Status: Former Tobacco user Tobacco use type: Cigarette e-Cigarette/Vaping Use: Never Used Second Hand Smoke Exposure: No service: No Current occupational status: unemployed Cognitive needs: No Hearing needs: No Vision needs: Yes Female Reproductive History Menstrual Age of Menarche: 10 Physical Exam Vital Signs: Last Vital Signs Pulse 72 11/25/24 08:41 Resp 18 11/25/24 08:41 BP 101/67 11/25/24 08:41 Pulse Ox 100 11/25/24 08:41 Oxygen Delivery Method Room Air 11/25/24 08:41 Assessment & Plan Assessment & Plan (1) Sacroiliac joint dysfunction of left side: Code(s): M53.3 - Sacrococcygeal disorders, not elsewhere classified Category: Medical Plan Left therapeutic sacroiliac joint injection. Informed consent was thoroughly explained to the patient risks and benefits were explained. The patient came to the operating room and positioned prone on operating table with pillow under the abdomen. Time-out was performed delineating name and date of of the patient, side and site of the procedure. The lower back of the patient was prepped with ChloraPrep and draped with self adhesive sterile utility towels. C-arm was brought over the operating field and picture of the left SI joint was demonstrated on the screen. Tilting C-arm 20 degrees contralateral to the site of the joint to the right the most posterior portion of the joint was superimposed on were anterior portion of the joint. The superpositions point was chosen as the target of the injection. The projection of the target with skin was injected with small amount of mixture of lidocaine 2% and ropivacaine 0.5% one-to-one. After that 22 gauge 3-1/2 inch needle was inserted through the skin wheal and advanced toward the SI joint in tunnel vision fashion. When needle gently entered the capsule of the joint injection of the contrast was performed delineating arthrogram. After that injection of the treatment medicine containing ropivacaine 0.5% 5 mL mixed with Kenalog 40 mg was performed into the joint. Upon completion of the injection needle was removed sterile Band-Aid was applied. The patient tolerated procedure well. Orders: Orders FL guidance in treatment room Today M53.3 - Sacrococcygeal disorders, not elsewhere classified Coding Level of Care Code Procedure Only Diagnoses Sacroiliac joint dysfunction of left side M53.3
== END 2024-11-25 09:29 | disposition home or self-care (01) ==
LOC: HO.PMCPRC 08:25
PROVIDERS: PCP Internal Medicine; Visit Provider Anesthesiology
DX: M53.3 Sacrococcygeal disorders, not elsewhere classified (principal)
CPT/HCPCS: 27096

== ENCOUNTER 2024-12-24 13:29 | Outpatient (AMB) | payer OTHER, SELFPAY ==
[2024-12-24 13:31] VITALS: BP 108/69; PULSE 77; RESP 16; O2SAT 95; BMI 30.7
--- NOTE | 2024-12-24 13:31 | MHC.OFFVIS ---
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 Accompanied by: Self / Same As Patient Allergies bee pollen (Bee Stings) Allergy (Severe, Verified 12/24/24 13:35) ANAPHYLAXIS latex (Latex) Allergy (Severe, Verified 12/24/24 13:35) ANAPHYLAXIS mushroom Allergy (Severe, Verified 12/24/24 13:35) ANAPHYLAXIS apple Adverse Reaction (Intermediate, Verified 12/24/24 13:35) itching Bee Stings Allergy (Unknown, Uncoded 09/16/24 07:20) Swelling Latex Allergy (Unknown, Uncoded 09/16/24 07:20) Unknown mushrooms Allergy (Unknown, Uncoded 09/16/24 07:20) Anaphylaxis cherries Adverse Reaction (Mild, Uncoded 09/16/24 07:20) itching HPI Comments Details: The patient is a 38-year-old female presenting with sacroiliac joint dysfunction. Initial injection provided significant relief, confirming the diagnosis of sacroiliac joint dysfunction. However, the pain returned shortly after, indicating the temporary nature of the relief provided by the injection. She reports one-week of pain relief after recent therapeutic injection however pain has since returned. Pain today is rated as a 10/10. The patient has attempted various interventions including physical therapy, ibuprofen, and Tylenol, with limited success. She reports using a sacroiliac belt, especially during work, to manage the pain, as her job involves significant physical activity. The patient is currently taking ibuprofen 800 mg but expresses concern about overuse and potential side effects. Her work at a [place] involves physical tasks such as frequent climbing of stairs, excessive walking, cleaning and moving supplies, which exacerbate her condition. She has also experienced adverse effects from narcotics in the past, making her cautious about pain management options. - Onset: Chronic, over years. - Quality: Described as severe and persistent. - Location: Primarily in the sacroiliac joint, with radiation to the tailbone. - Exacerbating factors: Physical activity at work, including cleaning and moving supplies. - Relieving factors: Use of sacroiliac belt and ibuprofen. - Affect: Pain impacts daily activities and work performance. - Analgesia: Currently using ibuprofen 800 mg, considering duloxetine and muscle relaxers for additional relief. - Adverse Effects: Concerns about overuse of ibuprofen and drowsiness from muscle relaxers. - Activities of Daily Living: Pain limits ability to perform physical tasks at work. - Aberrant Drug Related Behaviors: No evidence of misuse, but cautious about narcotics due to past adverse effects. [facility] Surgical History History of tubal ligation History of Family History Mother Mental health disorder Substance use disorder Father No problems noted. Family/Other Substance use disorder Cancer Social History Housing: Apartment Alcohol intake: current Alcohol intake frequency: holidays/special occasions only Alcohol type: wine Patient Tobacco Use Status: Former Tobacco user Tobacco use type: Cigarette e-Cigarette/Vaping Use: Never Used Second Hand Smoke Exposure: No service: No Current occupational status: unemployed Cognitive needs: No Hearing needs: No Vision needs: Yes Female Reproductive History Menstrual Age of Menarche: 10 Review of Systems Const Details: - Musculoskeletal: Reports severe pain in the sacroiliac joint and tailbone. - Neurological: Denies any other neurological symptoms. Physical Exam Exam Exam: General: awake, alert, oriented. Answers questions appropriately. Fully engaged in examination. Skin: warm, dry, intact HEENT: Normocephalic. Hearing intact. Cardiac: External chest normal in appearance. Respiratory: No cough, audible wheezing or stridor. Abdomen: without gross distension. MS: No obvious swelling or deformities. Able to transition from sit to stand unassisted. Ambulates with bilaterally normal heel strike and toe off Left SIJ: Tenderness over left PSIS. [place] positive, thigh thrust positive, SI compression positive SLR negative bilaterally Neurological: Oriented to person, place, time and situation. Thought process intact. No gait abnormalities appreciated. Psychiatric: Appropriate mood and affect. Good judgment and insight. Vital Signs: Last Vital Signs Pulse 77 12/24/24 13:31 Resp 16 12/24/24 13:31 BP 108/69 12/24/24 13:31 Pulse Ox 95 12/24/24 13:31 Oxygen Delivery Method Room Air 12/24/24 13:31 BMI result Body Mass Index 30.7 Results Reviewed Results Reviewed: 06/2024 XR/XR sacrum coccyx min 2V FINDINGS: There are no fractures. No bone, joint or soft tissue abnormality is demonstrated. There is grade 1 anterolisthesis L5 over S1 with L5-S1 degenerative disc changes. There is bilateral L5 pars defect suspected IMPRESSION: Unremarkable sacrum and coccyx. Grade 1 anterolisthesis L5 over S1 with degenerative L5-S1 disc changes Assessment & Plan Assessment & Plan (1) Sacroiliac joint dysfunction of left side: Code(s): M53.3 - Sacrococcygeal disorders, not elsewhere classified Category: Medical (2) Lumbar pain: Code(s): M54.50 - Low back pain, unspecified Category: Medical Plan The plan includes considering sacroiliac joint fusion to address the instability and persistent pain, as the initial injection provided only temporary relief. A CAT scan of the back and pelvis is required before proceeding with the fusion procedure to ensure proper assessment and planning. The patient is advised to continue using the sacroiliac belt during work to manage pain and prevent further exacerbation. Medications such as duloxetine and a muscle relaxer are prescribed to manage pain and improve sleep quality, with instructions to take the muscle relaxer at bedtime to avoid daytime drowsiness. The patient is encouraged to read about the sacroiliac joint fusion procedure and consider the recovery time required, as it may impact her ability to work. A prescription for ibuprofen 600 mg is provided to reduce the risk of adverse effects associated with higher doses, with instructions to take it with food. Patient will call the office when she is ready to schedule the procedure. She has to arrange with work in order to be able to take the time off for recovery. Patient was informed and verbally consented to the use of an ambient scribe for clinic note documentation during this visit. Orders: Orders CT lumbar spine wo IV con 12/24/24 M53.3 - Sacrococcygeal disorders, not elsewhere classified, M54.50 - Low back pain, unspecified CT pelvis wo IV con 12/24/24 M53.3 - Sacrococcygeal disorders, not elsewhere classified, M54.50 - Low back pain, unspecified Medications: New duloxetine 20 mg PO BID 60 caps 3RF Refilled methocarbamol No driving while taking this medication. Do no take with alcohol or other MANAGER MEDICAID Depressants 500 mg PO TID PRN 90 tabs 0RF muscle spasm ibuprofen 600 mg PO Q8H PRN 30 tabs 0RF pain (scale score 1-3) Discontinued amitriptyline Discontinued Reason: Doctor's Order 10 mg PO BEDTIME 30 tabs 1RF Patient Instructions: - Continue using the sacroiliac belt during work to manage pain. - Take duloxetine as prescribed to help manage pain. - Take the muscle relaxer at bedtime to avoid daytime drowsiness. - Take ibuprofen 600 mg with food to reduce the risk of stomach upset. - Read about the sacroiliac joint fusion procedure and consider the recovery time required. - Schedule a CAT scan of the back and pelvis as discussed. Coding Level of Care Code Est Pt Level 3 (65095) Complex EM visit Add On G2211 Diagnoses Sacroiliac joint dysfunction of left side M53.3 Lumbar pain M54.50
== END 2024-12-24 13:58 | disposition home or self-care (01) ==
LOC: HO.PMC 13:29
PROVIDERS: PCP Internal Medicine; Visit Provider Registered Nurse Emergency
DX: M53.3 Sacrococcygeal disorders, not elsewhere classified (principal); M54.50 Low back pain, unspecified
CPT/HCPCS: 99213; G2211

== ENCOUNTER → 2024-12-24 13:29 | Outpatient (BNVA) | payer OTHER, SELFPAY | PROVIDERS: PCP Internal Medicine; Visit Provider Registered Nurse Emergency | DX: M53.3 Sacrococcygeal disorders, not elsewhere classified (principal); M54.50 Low back pain, unspecified | CPT/HCPCS: 99212 ==